=== PATIENT | male | born 1960 | race Caucasian/White ===

== ENCOUNTER 2018-03-21 17:36 | Inpatient (IN) | payer OTHER ==
[2018-03-21] MEDS ORDERED: IPRATROPIUM-ALBUTEROL 3 ML NEB INHALATION STA (18:35)
--- NOTE | 2018-03-21 18:37 | ED ---
SOB HPI - General Chief Complaint: Shortness of Breath Stated Complaint: Low O2 Sent By ME Time Seen by Provider: 03/21/18 18:34 Source: patient, family, RN notes reviewed Mode of arrival: ambulatory Limitations: no limitations - History of Present Illness Initial Comments: This is a 57-year-old male with a benign past medical history who does not smoke but has worked as a jackson for many years who states he had the onset over last 3 weeks of shortness of breath and cough was getting progressively worse. It started after having episodes of nausea vomiting about 3 and half weeks ago. He coughed up some brown phlegm today he was been very diaphoretic no chest pain or other symptoms. He has no history of asthma or lung problems. No heart disease no other symptoms or modifying factors. He does have exertional dyspnea at this time. MD Complaint: shortness of breath, cough - Related Data Home Medications Medication Instructions Recorded Confirmed Fluticasone Nasal Oscar [Flonase 1 spr EA NOSTRIL DAILY PRN 03/21/18 03/21/18 Nasal Oscar] Loratadine [Claritin] 10 mg PO DAILY PRN 03/21/18 03/21/18 Allergies Allergy/AdvReac Type Severity Reaction Status Date / Time No Known Allergies Allergy Verified 03/21/18 18:45 Review of Systems ROS Statement: Those systems with pertinent positive or pertinent negative responses have been documented in the HPI. ROS Other: All systems not noted in ROS Statement are negative. Past Medical History Past Medical History: No Reported History History of Any Multi-Drug Resistant Organisms: None Reported Past Surgical History: Hernia Repair Past Psychological History: No Psychological Hx Reported Smoking Status: Never smoker Past Alcohol Use History: Occasional Past Drug Use History: None Reported General Exam - General Exam Comments Initial Comments: This is a well little pulmonary awake alert oriented 3 male Limitations: no limitations General appearance: alert, in no apparent distress Head exam: Present: atraumatic, normocephalic, normal inspection Eye exam: Present: normal appearance, PERRL, EOMI. Absent: scleral icterus, conjunctival injection, periorbital swelling ENT exam: Present: normal exam, mucous membranes moist Neck exam: Present: normal inspection. Absent: tenderness, meningismus, lymphadenopathy Respiratory exam: Present: rhonchi (Right lower lobe rhonchi), decreased breath sounds. Absent: respiratory distress, wheezes, rales, stridor Cardiovascular Exam: Present: regular rate, normal rhythm, normal heart sounds. Absent: systolic murmur, diastolic murmur, rubs, gallop, clicks GI/Abdominal exam: Present: soft, normal bowel sounds. Absent: distended, tenderness, guarding, rebound, rigid Extremities exam: Present: normal inspection, full ROM, normal capillary refill. Absent: tenderness, pedal edema, joint swelling, calf tenderness Back exam: Present: normal inspection Neurological exam: Present: alert, oriented X3, CN II-XII intact Psychiatric exam: Present: normal affect, normal mood Skin exam: Present: warm, intact, normal color, diaphoretic. Absent: rash Course Vital Signs 03/21/18 03/21/18 03/21/18 18:07 18:39 18:46 Temperature 98.8 F 98.1 F Pulse Rate 82 77 70 Respiratory 18 18 Rate Blood Pressure 113/72 105/65 O2 Sat by Pulse 90 L 94 L Oximetry 03/21/18 03/21/18 03/21/18 19:05 19:52 21:49 Temperature 97.5 F L Pulse Rate 73 66 61 Respiratory 18 18 Rate Blood Pressure 109/65 120/74 O2 Sat by Pulse 94 L 93 L Oximetry - Reevaluation(s) Reevaluation #1: 03/21/18 21:52 Patient minimal improvement from the initial treatment. Reevaluation #2: 03/21/18 21:54 I did discuss findings with the patient has . Patient does still demonstrate evidence of hypoxemia he will be admitted I did discuss the case with city call physician. He will be admitted with consultation by pulmonary medicine. Medical Decision Making - Lab Data Result diagrams: 03/21/18 18:19 03/21/18 18:19 Lab Results 03/21/18 03/21/18 03/21/18 Range/Units 18:19 18:19 18:19 WBC 8.9 (3.8-10.6) k/uL RBC 4.29 L (4.30-5.90) m/uL Hgb 12.3 L (13.0-17.5) gm/dL Hct 37.7 L (39.0-53.0) % MCV 88.0 (80.0-100.0) fL MCH 28.7 (25.0-35.0) pg MCHC 32.6 (31.0-37.0) g/dL RDW 13.9 (11.5-15.5) % Plt Count 355 (150-450) k/uL Neutrophils % 89 % Lymphocytes % 8 % Monocytes % 2 % Eosinophils % 0 % Basophils % 0 % Neutrophils # 7.9 H (1.3-7.7) k/uL Lymphocytes # 0.7 L (1.0-4.8) k/uL Monocytes # 0.2 (0-1.0) k/uL Eosinophils # 0.0 (0-0.7) k/uL Basophils # 0.0 (0-0.2) k/uL PT (9.0-12.0) sec INR (<1.2) APTT (22.0-30.0) sec D-Dimer (<0.60) mg/L FEU Sodium 132 L (137-145) mmol/L Potassium 4.3 (3.5-5.1) mmol/L Chloride 97 L (98-107) mmol/L Carbon Dioxide 27 (22-30) mmol/L Anion Gap 8 mmol/L BUN 20 (9-20) mg/dL Creatinine 1.03 (0.66-1.25) mg/dL Est GFR (CKD-EPI)AfAm >90 (>60 ml/min/1.73 sqM) Est GFR (CKD-EPI)NonAf 82 (>60 ml/min/1.73 sqM) Glucose 124 H (74-99) mg/dL Plasma Lactic Acid Duke 1.0 (0.7-2.0) mmol/L Calcium 7.7 L (8.4-10.2) mg/dL Magnesium (1.6-2.3) mg/dL Total Bilirubin 1.6 H (0.2-1.3) mg/dL AST 135 H (17-59) U/L ALT 148 H (21-72) U/L Alkaline Phosphatase 116 (38-126) U/L NT-Pro-B Natriuret Pep pg/mL Total Protein 6.0 L (6.3-8.2) g/dL Albumin 3.1 L (3.5-5.0) g/dL 03/21/18 03/21/18 03/21/18 Range/Units 18:19 18:19 18:19 WBC (3.8-10.6) k/uL RBC (4.30-5.90) m/uL Hgb (13.0-17.5) gm/dL Hct (39.0-53.0) % MCV (80.0-100.0) fL MCH (25.0-35.0) pg MCHC (31.0-37.0) g/dL RDW (11.5-15.5) % Plt Count (150-450) k/uL Neutrophils % % Lymphocytes % % Monocytes % % Eosinophils % % Basophils % % Neutrophils # (1.3-7.7) k/uL Lymphocytes # (1.0-4.8) k/uL Monocytes # (0-1.0) k/uL Eosinophils # (0-0.7) k/uL Basophils # (0-0.2) k/uL PT 12.2 H (9.0-12.0) sec INR 1.3 H (<1.2) APTT 24.3 (22.0-30.0) sec D-Dimer 1.95 H (<0.60) mg/L FEU Sodium (137-145) mmol/L Potassium (3.5-5.1) mmol/L Chloride (98-107) mmol/L Carbon Dioxide (22-30) mmol/L Anion Gap mmol/L BUN (9-20) mg/dL Creatinine (0.66-1.25) mg/dL Est GFR (CKD-EPI)AfAm (>60 ml/min/1.73 sqM) Est GFR (CKD-EPI)NonAf (>60 ml/min/1.73 sqM) Glucose (74-99) mg/dL Plasma Lactic Acid Duke (0.7-2.0) mmol/L Calcium (8.4-10.2) mg/dL Magnesium 2.8 H (1.6-2.3) mg/dL Total Bilirubin (0.2-1.3) mg/dL AST (17-59) U/L ALT (21-72) U/L Alkaline Phosphatase (38-126) U/L NT-Pro-B Natriuret Pep pg/mL Total Protein (6.3-8.2) g/dL Albumin (3.5-5.0) g/dL 03/21/18 Range/Units 19:34 WBC (3.8-10.6) k/uL RBC (4.30-5.90) m/uL Hgb (13.0-17.5) gm/dL Hct (39.0-53.0) % MCV (80.0-100.0) fL MCH (25.0-35.0) pg MCHC (31.0-37.0) g/dL RDW (11.5-15.5) % Plt Count (150-450) k/uL Neutrophils % % Lymphocytes % % Monocytes % % Eosinophils % % Basophils % % Neutrophils # (1.3-7.7) k/uL Lymphocytes # (1.0-4.8) k/uL Monocytes # (0-1.0) k/uL Eosinophils # (0-0.7) k/uL Basophils # (0-0.2) k/uL PT (9.0-12.0) sec INR (<1.2) APTT (22.0-30.0) sec D-Dimer (<0.60) mg/L FEU Sodium (137-145) mmol/L Potassium (3.5-5.1) mmol/L Chloride (98-107) mmol/L Carbon Dioxide (22-30) mmol/L Anion Gap mmol/L BUN (9-20) mg/dL Creatinine (0.66-1.25) mg/dL Est GFR (CKD-EPI)AfAm (>60 ml/min/1.73 sqM) Est GFR (CKD-EPI)NonAf (>60 ml/min/1.73 sqM) Glucose (74-99) mg/dL Plasma Lactic Acid Duke (0.7-2.0) mmol/L Calcium (8.4-10.2) mg/dL Magnesium (1.6-2.3) mg/dL Total Bilirubin (0.2-1.3) mg/dL AST (17-59) U/L ALT (21-72) U/L Alkaline Phosphatase (38-126) U/L NT-Pro-B Natriuret Pep 168 pg/mL Total Protein (6.3-8.2) g/dL Albumin (3.5-5.0) g/dL - EKG Data -: EKG Interpreted by Oh EKG shows normal: sinus rhythm (Sinus rhythm with PACs rate was 72. Interval 134 QRS duration 92 QT since QTC 426/[address]-T wave changes) - Radiology Data Radiology results: report reviewed (Did review the initial imaging which did show evidence of increased interstitial markings. CAT scan shows no evidence of PE there is evidence however of pulmonary infiltrates extensive some mediastinal adenopathy question sarcoidosis.), image reviewed Critical Care Time Critical Care Time: Yes Critical Care Time: 31 minutes of critical care time which includes history physical labs x-rays several reevaluation of the patient. Discussed with the patient has discussed with the beta physician admission orders and documentation of the above. Disposition Clinical Impression: Interstitial pneumonia, Hypoxemia, Failure of outpatient treatment Disposition: ADMITTED IP TO THIS [facility] Condition: Stable Referrals: None,Stated [Primary Care Provider] - 1-2 days
[2018-03-21 18:42] LABS: INR 1.3 (<1.2); Partial Thromboplastin Time 24.3 sec (22.0-30.0); Prothrombin Time 12.2 sec (9.0-12.0)
[2018-03-21 18:47] LABS: ALT 148 U/L (21-72); AST 135 U/L (17-59); Albumin 3.1 g/dL (3.5-5.0); Alkaline Phosphatase 116 U/L (38-126); Anion Gap 8 mmol/L; Blood Urea Nitrogen 20 mg/dL (9-20); Calcium 7.7 mg/dL (8.4-10.2); Carbon Dioxide 27 mmol/L (22-30); Chloride 97 mmol/L (98-107); Glucose 124 mg/dL (74-99); Potassium 4.3 mmol/L (3.5-5.1); Sodium 132 mmol/L (137-145); Total Bilirubin 1.6 mg/dL (0.2-1.3)
[2018-03-21 18:51] LABS: Basophils % (A) 0 %; Eosinophils % (A) 0 %; HCT 37.7 % (39.0-53.0); HGB 12.3 gm/dL (13.0-17.5); Lymphocytes # (A) 0.7 k/uL (1.0-4.8); Lymphocytes % (A) 8 %; MCH 28.7 pg (25.0-35.0); MCHC 32.6 g/dL (31.0-37.0); Mean Platelet Volume 6.7; Monocytes # (A) 0.2 k/uL (0-1.0); Monocytes % (A) 2 %; Neutrophils # (A) 7.9 k/uL (1.3-7.7); Neutrophils % (A) 89 %; Platelet Count 355 k/uL (150-450); RBC 4.29 m/uL (4.30-5.90); RDW 13.9 % (11.5-15.5); WBC 8.9 k/uL (3.8-10.6)
--- NOTE | 2018-03-21 21:23 | CT ---
EXAMINATION TYPE: CT angio chest DATE OF EXAM: 03/21/2018 8:26 PM COMPARISON: None HISTORY: chest pain/cough/sob x [address] DLP: 434.9 mGycm Automated exposure control for dose reduction was used. CONTRAST: CTA scan of the thorax is performed with IV Contrast, patient injected with 100 mL of Isovue 370, pul monary embolism protocol. There are 3-D post processed images.. FINDINGS: There is extensive patchy reticular nodular bilateral pulmonary infiltrate. This is slightly worse on the right side. There is some elevation of the right diaphragm and atelectasis and consolidation at the right lung base. There is minimal pleural thickening at the lung bases. There is no pericardial e ffusion. There are multiple enlarged mediastinal and bronchial lymph nodes that measure up to 2 cm. I see no filling defects in the pulmonary arteries. There is no evidence of aortic aneurysm or dissect ion. The bony thorax is intact. IMPRESSION: NO EVIDENCE OF PULMONARY EMBOLISM. EXTENSIVE PULMONARY INFILTRATES WITH MEDIASTINAL AND BRONCHIAL ADENOPATHY. THIS COULD RELATE TO SARCO IDOSIS.
[2018-03-21] MEDS ORDERED: cefTRIAXone IN SWFI 1,000 MG/10 ML SYRINGE IVP STA (21:51)
[2018-03-21] MEDS ORDERED: methylPREDNISolone SOD SUCCI 125 MG/2 ML VIAL IV STA (21:51)
[2018-03-21] MEDS ORDERED: PNEUMONIA PROTOCOL UTILIZED 1 EACH MISC PO PRN (21:56)
[2018-03-21] MEDS ORDERED: AZITHROMYCIN 500 MG in DEXTROSE 5% IN WATER 250 ML IVPB STA ×2 (21:56)
[2018-03-21] MEDS ORDERED: FLUTICASONE 50MCG/SPRAY NASAL 16GM EA NOSTRIL PRN (21:58)
[2018-03-21] MEDS ORDERED: LORATADINE 10 MG TAB PO PRN (21:58)
[2018-03-21] MEDS ORDERED: SODIUM CHLORIDE 0.9% 1,000 ML IV SCH (22:00)
[2018-03-22] MEDS ORDERED: methylPREDNISolone SOD SUCCI 125 MG/2 ML VIAL IV SCH
[2018-03-22] MEDS ORDERED: IPRATROPIUM-ALBUTEROL 3 ML NEB INHALATION SCH
[2018-03-22] MEDS ORDERED: NALOXONE 0.4 MG/ML 1 ML VIAL IV PRN (00:55)
--- NOTE | 2018-03-22 01:08 | P.HPIM ---
History of Present Illness H&P Date: 03/21/18 Chief Complaint: Cough and shortness of breath 57-year-old male with no significant past medical history presented to the hospital due to fevers and chills at home along with prolonged coughing productive of brownish sputum along with shortness of breath with coughing. Patient reports that he wasn't status of health up to 3 weeks ago when he started having viral syndrome like symptoms with generalized malaise and coughing his was diagnosed with cold/flu like symptoms before him. He thought that he caught the flu from her however his symptoms kept on worsening and has been prolonged his has been feeling better already. Over the past few days he has noticed fevers ranging between 101-103 Fahrenheit along with shortness of breath in productive cough brownish sputum sometimes whitish sputum increasing in amount. He denies any history of smoking. 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 Patient denies any chest pain, denies any abdominal pain, denies any nausea or vomiting, denies any bowel changes or urinary habit changes. In the ED CT angiogram the chest was performed showed no evidence of acute PE. However did show diffuse infiltrations and lymphadenopathy. Patient is admitted for treatment of pneumonia. Review of Systems Pertinent positives as noted in HPI. All other systems were reviewed and are negative Past Medical History Past Medical History: No Reported History History of Any Multi-Drug Resistant Organisms: None Reported Past Surgical History: Hernia Repair Past Psychological History: No Psychological Hx Reported Smoking Status: Never smoker Past Alcohol Use History: Occasional Past Drug Use History: None Reported - Past Family History Father Family Medical History: Cancer Additional Family Medical History / Comment(s): colon and prostate Medications and Allergies Home Medications Medication Instructions Recorded Confirmed Type Fluticasone Nasal Sawyer [Flonase 1 spr EA NOSTRIL DAILY PRN 03/21/18 03/21/18 History Nasal Sawyer] Loratadine [Claritin] 10 mg PO DAILY PRN 03/21/18 03/21/18 History Allergies Allergy/AdvReac Type Severity Reaction Status Date / Time No Known Allergies Allergy Verified 03/21/18 18:45 Physical Exam Vitals: Vital Signs Temp Pulse Resp BP Pulse Ox 03/21/18 21:49 97.5 F L 61 18 120/74 93 L 03/21/18 19:52 66 18 109/65 94 L 03/21/18 19:05 73 03/21/18 18:46 70 03/21/18 18:39 98.1 F 77 18 105/65 94 L 03/21/18 18:07 98.8 F 82 18 113/72 90 L Intake and Output 03/21/18 03/21/18 03/21/18 06:59 14:59 22:59 Other: Weight 104.326 kg Constitutional: No acute distress, conversant, pleasant Eyes: Anicteric sclerae, moist conjunctiva, no lid-lag Pupils equal round reactive to light ENMT: NC/AT Oropharynx clear, no erythema, or exudates Neck: Supple, FROM, no masses, or JVD No carotid bruits No thyromegaly Lungs: Decreased breath sounds over right lung base, no wheezes or rhonchi Normal respiratory effort, no accessory muscle use Cardiovascular: Heart regular in rate and rhythm, No murmurs, gallops, or rubs No peripheral edema Abdominal: Soft Nontender, no guarding, rebound or rigidity Abdomen moving with respiration Normoactive bowel sounds No hepatomegaly, No splenomegaly No palpable mass No abdominal wall hernia noted Skin: Normal temperature, tone, texture, turgor No induration No subcutaneous nodules No rash, lesions No ulcers Extremities: No digital cyanosis No clubbing Pedal pulses intact and symmetrical Radial pulses intact and symmetrical No calf tenderness Psychiatric: Alert and oriented to person, place and time Appropriate affect fair judgment Neuro Muscles Strength 5/5 in all 4 extremities Sensation to light touch grossly present throughout Cranial nerves II-XII grossly intact No focal sensory deficits Lymphatics: no palpable cervical or supraclavicular , or inguinal lymph nodes Results CBC & Chem 7: 03/21/18 18:19 03/21/18 18:19 Labs: Abnormal Lab Results - Last 24 Hours (Table) 03/21/18 03/21/18 03/21/18 Range/Units 18:19 18:19 18:19 RBC 4.29 L (4.30-5.90) m/uL Hgb 12.3 L (13.0-17.5) gm/dL Hct 37.7 L (39.0-53.0) % Neutrophils # 7.9 H (1.3-7.7) k/uL Lymphocytes # 0.7 L (1.0-4.8) k/uL PT 12.2 H (9.0-12.0) sec INR 1.3 H (<1.2) D-Dimer (<0.60) mg/L FEU Sodium 132 L (137-145) mmol/L Chloride 97 L (98-107) mmol/L Glucose 124 H (74-99) mg/dL Calcium 7.7 L (8.4-10.2) mg/dL Magnesium (1.6-2.3) mg/dL Total Bilirubin 1.6 H (0.2-1.3) mg/dL AST 135 H (17-59) U/L ALT 148 H (21-72) U/L Total Protein 6.0 L (6.3-8.2) g/dL Albumin 3.1 L (3.5-5.0) g/dL 03/21/18 03/21/18 Range/Units 18:19 18:19 RBC (4.30-5.90) m/uL Hgb (13.0-17.5) gm/dL Hct (39.0-53.0) % Neutrophils # (1.3-7.7) k/uL Lymphocytes # (1.0-4.8) k/uL PT (9.0-12.0) sec INR (<1.2) D-Dimer 1.95 H (<0.60) mg/L FEU Sodium (137-145) mmol/L Chloride (98-107) mmol/L Glucose (74-99) mg/dL Calcium (8.4-10.2) mg/dL Magnesium 2.8 H (1.6-2.3) mg/dL Total Bilirubin (0.2-1.3) mg/dL AST (17-59) U/L ALT (21-72) U/L Total Protein (6.3-8.2) g/dL Albumin (3.5-5.0) g/dL Assessment and Plan Assessment: 57-year-old male with no significant past medical history admitted as inpatient with anticipated length of stay of more than 2 days due to fevers coughing shortness of breath, he was diagnosed with congenital acquired pneumonia and started on IV antibiotics. Patient was hypoxemic initially upon admission and was started on oxygen through nasal cannula which helped improve the hypoxemia. Plan: Continue acquired pneumonia , suspected underlying legionella penumonia due to hyponatremia, elevated liver enzymes, and diffuse pulmonary infilterates Acute hypoxic respiratory failure secondary to continue current pneumonia Rocephin and Zithromax Tylenol for fevers Oxygen through nasal cannula Pain control Follow-up with pulmonary due to diffuse lymphadenopathy and pulmonary infiltrates Patient has no PCP Check Legionella antigen in the urine IV fluid hydration with normal saline Hyponatremia, this could be related to possible suspected underlying legionella pneumonia Follow-up sodium levels Currently asymptomatic Mild anemia Family history of colon cancer Patient denies GI bleeds Follow-up hemoglobin DVT prophylaxis on heparin subcu 3 times a day Surrogate decision-maker: Patient Toshia CODE STATUS: Full code Discussed with: Patient, ER, RN Anticipated discharge: >[address]: Home A total of 60 minutes was spent on the care of this complex patient more than 50 % of the time was spent in counseling and care coordination.
[2018-03-22 02:08] LABS: Appearance,Urine Clear (Clear); Bilirubin,Urine Negative (Negative); Blood,Urine Trace (Negative); Color,Urine Yellow; Glucose,Urine (UA) 3+ (Negative); Ketones,Urine Negative (Negative); Leukocyte Esterase,Urine Negative (Negative); Nitrite,Urine Negative (Negative); Protein,Urine Trace (Negative); RBC,Urine <1 /hpf (0-5); Specific Gravity,Urine 1.015 (1.001-1.035); WBC,Urine 1 /hpf (0-5)
[2018-03-22] MEDS: IPRATROPIUM-ALBUTEROL 3 ML NEB INHALATION SCH ×3 (07:06→15:31)
[2018-03-22] MEDS ORDERED: HEPARIN SODIUM,PORCINE 5,000 UNIT/ML 1 ML VIAL SQ SCH (08:00)
--- NOTE | 2018-03-22 08:09 | XR ---
EXAMINATION TYPE: XR chest 2V DATE OF EXAM: 03/22/2018 COMPARISON: None INDICATION: Cough TECHNIQUE: Frontal and lateral views of the chest are obtained. FINDINGS: The heart size is normal. The pulmonary vasculature is normal. Focal consolidation is not identified. Mild increased lung markings are not entirely excluded at the lung bases. Findings are nonspecific. Developing pneumonia could be considered. Atelectasis is within the differential. IMPRESSION: 1. Subtle bibasilar infiltrates more likely related to subsegmental atelectasis. Developing pneumonia is within the differential. Follow-up exams can be performed as clinically indicated.
[2018-03-22] MEDS: AZITHROMYCIN 500 MG TAB PO SCH (08:27)
[2018-03-22] MEDS: cefTRIAXone IN SWFI 1,000 MG/10 ML SYRINGE IVP SCH (08:27)
--- NOTE | 2018-03-22 08:56 | US ---
EXAMINATION TYPE: US abdomen limited DATE OF EXAM: 03/22/2018 COMPARISON: NONE CLINICAL HISTORY: elevated liver enzymes. abnormal labs EXAM MEASUREMENTS: Liver Length: 16.4 cm Gallbladder Wall: 0.2 cm CHD: 0.4 cm Right Kidney: 11.9x 5.5 x 7.0 cm Limited exam due to overlying bowel gas Pancreas: Suboptimally visualized, head and tail not well visualized due to overlying bowel gas Liver: Two cystic appearing lesions seen. 1- Right adjacent to GB = 1.5 x 1.1 x 1.3 cm. 2- Left lo be = 1.6 x 1.4 x 1.0 cm Gallbladder: wnl Evidence for sonographic Cuello's sign: neg CBD: Obscured by overlying bowel gas CHD: wnl Right Kidney: Two cystic appearing lesions. 1-Mid/medial = 2.4 x 2.7 x 2.0 cm. 2- upper cortical = 1.2 x 0.9 x 1.0 cm IMPRESSION: 1. No sonographic evidence of cholelithiasis or acute cholecystitis. No sonographic sequela of hepato cellular disease. 2. Simple appearing hepatic and right renal cysts.
--- NOTE | 2018-03-22 11:44 | P.PN ---
Subjective Progress Note Date: 03/22/18 Principal diagnosis: Community-acquired pneumonia Patient reports feeling slightly better today. He is still having a lot of cough. Objective - Vital Signs Vital signs: Vital Signs Temp 96.9 F L 03/22/18 07:00 Pulse 88 03/22/18 11:19 Resp 16 03/22/18 11:19 BP 112/88 03/22/18 07:00 Pulse Ox 93 L 03/22/18 07:07 Intake & Output 03/21/18 03/22/18 03/22/18 18:59 06:59 18:59 Output Total 1100 Balance -1100 Weight 104.326 kg Output: Urine 1100 Other: Voiding Method Toilet - Exam General: The patient is awake and alert, in no distress Eye: there is normal conjunctiva bilaterally. Neck: The neck is supple, there is no JVD. Cardiovascular: Normal S1-S2, no S3-S4, no murmurs. Respiratory: Lungs with mild wheezing and rhonchi all over the chest Gastrointestinal: Abdomen is soft, nontender Musculoskeletal: There is no pedal edema. Neurological:. Speech is normal. Skin: Skin is warm and dry - Labs CBC & Chem 7: 03/21/18 18:19 03/21/18 18:19 Labs: Abnormal Lab Results - Last 24 Hours (Table) 03/21/18 03/21/18 03/21/18 Range/Units 18:19 18:19 18:19 RBC 4.29 L (4.30-5.90) m/uL Hgb 12.3 L (13.0-17.5) gm/dL Hct 37.7 L (39.0-53.0) % Neutrophils # 7.9 H (1.3-7.7) k/uL Lymphocytes # 0.7 L (1.0-4.8) k/uL PT 12.2 H (9.0-12.0) sec INR 1.3 H (<1.2) D-Dimer (<0.60) mg/L FEU Sodium 132 L (137-145) mmol/L Chloride 97 L (98-107) mmol/L Glucose 124 H (74-99) mg/dL Calcium 7.7 L (8.4-10.2) mg/dL Magnesium (1.6-2.3) mg/dL Total Bilirubin 1.6 H (0.2-1.3) mg/dL AST 135 H (17-59) U/L ALT 148 H (21-72) U/L Total Protein 6.0 L (6.3-8.2) g/dL Albumin 3.1 L (3.5-5.0) g/dL Urine Protein (Negative) Urine Glucose (UA) (Negative) Urine Blood (Negative) 03/21/18 03/21/18 03/22/18 Range/Units 18:19 18:19 01:40 RBC (4.30-5.90) m/uL Hgb (13.0-17.5) gm/dL Hct (39.0-53.0) % Neutrophils # (1.3-7.7) k/uL Lymphocytes # (1.0-4.8) k/uL PT (9.0-12.0) sec INR (<1.2) D-Dimer 1.95 H (<0.60) mg/L FEU Sodium (137-145) mmol/L Chloride (98-107) mmol/L Glucose (74-99) mg/dL Calcium (8.4-10.2) mg/dL Magnesium 2.8 H (1.6-2.3) mg/dL Total Bilirubin (0.2-1.3) mg/dL AST (17-59) U/L ALT (21-72) U/L Total Protein (6.3-8.2) g/dL Albumin (3.5-5.0) g/dL Urine Protein Trace H (Negative) Urine Glucose (UA) 3+ H (Negative) Urine Blood Trace H (Negative) Microbiology - Last 24 Hours (Table) 03/22/18 01:40 Urine Culture - Preliminary Urine,Voided Assessment and Plan Assessment: 1. Community-acquired pneumonia, started on IV ceftriaxone and oral azithromycin. Sputum and blood culture pending. Legionella antigen pending. Continue supportive care. Mucinex twice daily. 2. Reactive airway disease, patient is not known to have history of COPD. he was given one-time dose of Solu-Medrol 125 mg IV in the emergency room. We will continue bronchodilator. Pulmonology consulted for further evaluation. 3. Bibasilar atelectasis noted on chest x-ray, incentive spirometer ordered at bedside to be used once an hour while awake 4. Transaminitis, exact etiology unclear. I would open her acute hepatitis panel. Ultrasound of the abdomen showed no acute findings. 5. Hyponatremia, probably related to dehydration. patient received IV fluid overnight. Awaiting repeat lab work. 6. DVT prophylaxis with subcu heparin 7. Dyspnea, probably related to underlying pneumonia. Computed tomography scan of the chest showed no evidence of PE. Noted mediastinal and bronchial adenopathy probably related to underlying infection. Pulmonology consulted. In the differential diagnosis still inflammatory disease or underlying sarcoidosis at this time
--- NOTE | 2018-03-22 13:30 | P.CNPUL ---
History of Present Illness Consult date: 03/22/18 Reason for consult: dyspnea, cough, hypoxemia, pneumonia, abnormal CXR/CT Chief complaint: Shortness of breath, pneumonia History of present illness: Pulmonary consultation dated 03/22/2018 This is a 57-year-old male with no significant past medical history other than environmental ALLERGIES for which he uses Claritin and Flonase nasal spray apparently has not been feeling well for about 2 or 3 weeks. The patient describes initially some GI complaints including some nausea and vomiting and subsequent to that some respiratory complaints including shortness of breath chest congestion cough and phlegm production. The patient states that the prior to this he was doing completely well and really had no major issues other than his ALLERGIES. He denies any cardiac disease or pulmonary disease prior. He is a lifelong nonsmoker. The patient states that he came into the emergency room because he was really feeling very ill. He thought was some pleural viral infection. The phlegm is coughing up is apparently brown in color and very sticky. His chest x-ray showed a subtle interstitial pattern and/or atelectasis and a computed tomography scan was very impressive. It could be consistent with an interstitial pneumonia. There is also some adenopathy in the radiologist raises specter of possible sarcoidosis. Again 2-3 weeks ago, he was completely normal. Lifelong nonsmoker. 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 The patient again is a lifelong nonsmoker. The patient does drink only socially. No history of illicit drug use. Review of Systems A 12 point review of systems is positive for initially some GI complaints including some abdominal discomfort and nausea and vomiting. Subsequent to that , the patient developed some respiratory issues including chest congestion coughing shortness of breath wheezing and phlegm production. The symptoms have been present and progressive over the last 2-3 weeks. Past Medical History Past Medical History: No Reported History History of Any Multi-Drug Resistant Organisms: None Reported Past Surgical History: Hernia Repair Past Anesthesia/Blood Transfusion Reactions: No Reported Reaction Past Psychological History: No Psychological Hx Reported Smoking Status: Never smoker Past Alcohol Use History: Occasional Past Drug Use History: None Reported - Past Family History Father Family Medical History: Cancer Additional Family Medical History / Comment(s): colon and prostate Medications and Allergies Home Medications Medication Instructions Recorded Confirmed Type Fluticasone Nasal Holt [Flonase 1 spr EA NOSTRIL DAILY PRN 03/21/18 03/21/18 History Nasal Holt] Loratadine [Claritin] 10 mg PO DAILY PRN 03/21/18 03/21/18 History Allergies Allergy/AdvReac Type Severity Reaction Status Date / Time No Known Allergies Allergy Verified 03/21/18 18:45 Physical Exam Osteopathic Statement: *. No significant issues noted on an osteopathic structural exam other than those noted in the History and Physical/Consult. Vitals: Vital Signs Temp Pulse Pulse Resp BP BP Pulse Ox 03/22/18 11:54 87 L 03/22/18 11:19 88 16 03/22/18 11:05 85 16 03/22/18 07:17 74 16 03/22/18 07:07 70 16 93 L 03/22/18 07:00 96.9 F L 75 22 112/88 94 L 03/21/18 23:44 98.7 F 72 24 107/60 94 L 03/21/18 21:49 97.5 F L 61 18 120/74 93 L 03/21/18 19:52 66 18 109/65 94 L 03/21/18 19:05 73 03/21/18 18:46 70 03/21/18 18:39 98.1 F 77 18 105/65 94 L 03/21/18 18:07 98.8 F 82 18 113/72 90 L Intake and Output 03/21/18 03/22/18 03/22/18 22:59 06:59 14:59 Output Total 1100 Balance -1100 Output: Urine 1100 Other: Voiding Method Toilet Weight 104.326 kg No acute distress, oriented 3. Nasal O2 in place. No obvious respiratory distress. HEENT examination is grossly unremarkable. Mucous membranes are moist. No oral lesions. Neck supple. Full range of motion. No adenopathy thyromegaly or neck vein distention. Cardiovascular examination reveals regular rhythm rate. S1-S2 normal. No S3 or S4. No discernible murmur noted. Lungs reveal crackles throughout both lung maki. He sounds like someone with interstitial lung disease. No wheezes. No rhonchi. Breath sounds equal bilaterally. Abdomen soft bowel sounds are heard. No masses or tenderness. Extremities are intact. No cyanosis clubbing or edema. Skin is without rash or lesion. Neurologic examination is brief but nonfocal. Results - Laboratory Findings CBC and BMP: 03/21/18 18:19 03/21/18 18:19 PT/INR, D-dimer PT 12.2 sec (9.0-12.0) H 03/21/18 18:19 INR 1.3 (<1.2) H 03/21/18 18:19 D-Dimer 1.95 mg/L FEU (<0.60) H 03/21/18 18:19 Abnormal lab findings: Abnormal Labs 03/21/18 03/21/18 03/21/18 18:19 18:19 18:19 RBC 4.29 L Hgb 12.3 L Hct 37.7 L Neutrophils # 7.9 H Lymphocytes # 0.7 L PT 12.2 H INR 1.3 H D-Dimer Sodium 132 L Chloride 97 L Glucose 124 H Calcium 7.7 L Magnesium Total Bilirubin 1.6 H AST 135 H ALT 148 H Total Protein 6.0 L Albumin 3.1 L Urine Protein Urine Glucose (UA) Urine Blood 03/21/18 03/21/18 03/22/18 18:19 18:19 01:40 RBC Hgb Hct Neutrophils # Lymphocytes # PT INR D-Dimer 1.95 H Sodium Chloride Glucose Calcium Magnesium 2.8 H Total Bilirubin AST ALT Total Protein Albumin Urine Protein Trace H Urine Glucose (UA) 3+ H Urine Blood Trace H - Diagnostic Findings Chest x-ray: report reviewed, image reviewed CT scan - chest: report reviewed, image reviewed (Chest x-ray, labs and medications are all reviewed.) Assessment and Plan Assessment: Assessment Interstitial changes on chest x-ray and CAT scan, possibly consistent with interstitial pneumonia or atypical organisms. History of multiple environmental ALLERGIES No prior history of pulmonary disease. Lifelong nonsmoker Hypoxemic respiratory failure. Plan: Plan dated 03/22/2018 The patient's white count was 8.9. Hemoglobin 12.3 hematocrit 37.7 and platelet count normal. PT/INR were 12.2 and 1.3. D-dimer was 1.95. Sodium 132 potassium 4.3 chloride is 97 CO2 27. BUN and creatinine were 20 and 1.03. N-terminal proBNP was normal. Calcium 7.7 magnesium 2.8 bilirubin 1.6 AST and ALTs were 135 and 148 respectively. Urine appears to be relatively normal. The patient's chest x-ray is not too impressive but his CAT scan is impressive. He is currently on Zithromax and Rocephin. He is also getting breathing treatments. He got one dose of steroids. He is also on Mucinex Flonase nasal spray and a basic IV. I will get a Legionella urinary antigen. If not really done, he should have blood urine and sputum cultures. He may benefit from bronchoscopy did not show improvement. I will also order an angiotensin- converting enzyme level. Time with Patient: Greater than 30
[2018-03-22] MEDS: guaiFENesin 600 MG TABLET.ER PO SCH ×2 (13:40→21:00)
[2018-03-22 16:57] LABS: Hepatitis A Antibody IgM Non-Reactive (Non-Reactive); Hepatitis B Core IgM Non-Reactive (Non-Reactive)
[2018-03-22] MEDS: HEPARIN SODIUM,PORCINE 5,000 UNIT/ML 1 ML VIAL SQ SCH (20:59)
[2018-03-23 08:20] LABS: Basophils % (A) 0 %; Eosinophils % (A) 0 %; HCT 36.8 % (39.0-53.0); HGB 11.5 gm/dL (13.0-17.5); Lymphocytes # (A) 0.9 k/uL (1.0-4.8); Lymphocytes % (A) 10 %; MCH 28.3 pg (25.0-35.0); MCHC 31.3 g/dL (31.0-37.0); MCV 90.4 fL (80.0-100.0); Monocytes # (A) 0.2 k/uL (0-1.0); Monocytes % (A) 2 %; Neutrophils # (A) 7.3 k/uL (1.3-7.7); Neutrophils % (A) 86 %; Platelet Count 364 k/uL (150-450); RBC 4.07 m/uL (4.30-5.90); RDW 13.4 % (11.5-15.5); WBC 8.5 k/uL (3.8-10.6)
[2018-03-23 08:31] LABS: ALT 127 U/L (21-72); AST 73 U/L (17-59); Albumin 2.6 g/dL (3.5-5.0); Alkaline Phosphatase 86 U/L (38-126); Anion Gap 8 mmol/L; Blood Urea Nitrogen 18 mg/dL (9-20); Calcium 7.8 mg/dL (8.4-10.2); Carbon Dioxide 25 mmol/L (22-30); Chloride 104 mmol/L (98-107); Glucose 99 mg/dL (74-99); Potassium 4.4 mmol/L (3.5-5.1); Sodium 137 mmol/L (137-145); Total Bilirubin 0.7 mg/dL (0.2-1.3); Total Protein 5.4 g/dL (6.3-8.2)
[2018-03-23] MEDS: cefTRIAXone IN SWFI 1,000 MG/10 ML SYRINGE IVP SCH (08:41)
[2018-03-23] MEDS: AZITHROMYCIN 500 MG TAB PO SCH (08:41)
[2018-03-23] MEDS: guaiFENesin 600 MG TABLET.ER PO SCH ×2 (08:41→20:12)
[2018-03-23] MEDS: HEPARIN SODIUM,PORCINE 5,000 UNIT/ML 1 ML VIAL SQ SCH ×2 (08:42→20:12)
[2018-03-23] MEDS: IPRATROPIUM-ALBUTEROL 3 ML NEB INHALATION PRN ×2 (11:46→19:41)
--- NOTE | 2018-03-23 11:53 | P.PN ---
Subjective Progress Note Date: 03/23/18 Principal diagnosis: Community-acquired pneumonia Patient is doing well today. He said that his shortness of breath is improving but he is not back to his normal baseline yet. He is still having dyspnea with ambulation. Objective - Vital Signs Vital signs: Vital Signs Temp 97.4 F L 03/23/18 06:46 Pulse 98 03/23/18 11:48 Resp 18 03/23/18 06:46 BP 120/76 03/23/18 06:46 Pulse Ox 93 L 03/23/18 08:13 Intake & Output 03/22/18 03/23/18 03/23/18 18:59 06:59 18:59 Intake Total 450 Balance 450 Intake: Oral 450 Other: Voiding Method Toilet # Voids 1 1 - Exam General: The patient is awake and alert, in no distress Eye: there is normal conjunctiva bilaterally. Neck: The neck is supple, there is no JVD. Cardiovascular: Normal S1-S2, no S3-S4, no murmurs. Respiratory: Lungs are clear to auscultation bilaterally Gastrointestinal: Abdomen is soft, nontender Musculoskeletal: There is no pedal edema. Neurological:. Speech is normal. Skin: Skin is warm and dry - Labs CBC & Chem 7: 03/23/18 07:44 03/23/18 07:44 Labs: Abnormal Lab Results - Last 24 Hours (Table) 03/23/18 03/23/18 Range/Units 07:44 07:44 RBC 4.07 L (4.30-5.90) m/uL Hgb 11.5 L (13.0-17.5) gm/dL Hct 36.8 L (39.0-53.0) % Lymphocytes # 0.9 L (1.0-4.8) k/uL Calcium 7.8 L (8.4-10.2) mg/dL AST 73 H (17-59) U/L ALT 127 H (21-72) U/L Total Protein 5.4 L (6.3-8.2) g/dL Albumin 2.6 L (3.5-5.0) g/dL Microbiology - Last 24 Hours (Table) 03/22/18 09:00 Gram Stain - Preliminary Sputum 03/21/18 18:19 Blood Culture - Preliminary Blood No Growth after 24 hours 03/22/18 01:40 Urine Culture - Preliminary Urine,Voided Assessment and Plan Assessment: 1. Community-acquired pneumonia, started on IV ceftriaxone and oral azithromycin. Sputum and blood culture pending. Legionella antigen is a send out lab and won't be back until Sunday or Sunday. Continue supportive care. Mucinex twice daily. 2. Reactive airway disease, patient is not known to have history of COPD. he was given one-time dose of Solu-Medrol 125 mg IV in the emergency room. We will continue bronchodilator. Pulmonology consulted for further evaluation. 3. Bibasilar atelectasis noted on chest x-ray, incentive spirometer ordered at bedside to be used once an hour while awake 4. Transaminitis, trending down. exact etiology unclear. Acute hepatitis panel pending. Ultrasound of the abdomen showed no acute findings. 5. Hyponatremia, resolved with IV fluid hydration. probably related to dehydration 6. DVT prophylaxis with subcu heparin 7. Dyspnea, probably related to underlying pneumonia. Computed tomography scan of the chest showed no evidence of PE. Noted mediastinal and bronchial adenopathy probably related to underlying infection. Pulmonology consulted. Considering bronchoscopy on Sunday awaiting final recommendations,
--- NOTE | 2018-03-23 12:15 | P.PN ---
Subjective Progress Note Date: 03/23/18 Principal diagnosis: Pneumonia Progress note dated 03/23/2018 57-year-old male who was admitted with a diagnosis of a respiratory illness that has been going on for a couple weeks. His chest x-ray and CAT scan suggesting interstitial pattern consistent with either viral or atypical pneumonia. The patient's complaints primarily included chest congestion cough and shortness of breath. He is feeling a bit better today. Somewhat of a poor historian. This process per my consultation started maybe 2-3 weeks ago. He initially had some GI complaints. He is a pretty healthy man. Has a history of multiple environmental ALLERGIES. He has no prior history of any lung disease. He is a lifelong nonsmoker. White count is 8.5 hemoglobin 11.5 hematocrit 36.8 and platelet count is normal. Electrolytes look pretty normal. Liver function tests were a little abnormal but seemed to be improving. Urine was negative. Blood urine and sputum cultures are thus far negative. A Legionella urinary antigen is pending. He is currently on Zithromax and Rocephin and breathing treatments. Objective - Vital Signs Vital signs: Vital Signs Temp 97.4 F L 03/23/18 06:46 Pulse 94 03/23/18 12:00 Resp 18 03/23/18 06:46 BP 120/76 03/23/18 06:46 Pulse Ox 93 L 03/23/18 08:13 Intake & Output 03/22/18 03/23/18 03/23/18 18:59 06:59 18:59 Intake Total 450 Balance 450 Intake: Oral 450 Other: Voiding Method Toilet # Voids 1 1 - Exam No acute distress, oriented 3. Nasal O2 in place. No respiratory distress. HEENT examination is grossly unremarkable. Mucous membranes are moist. No oral lesions. Neck supple. Full range of motion. No adenopathy thyromegaly or neck vein distention. Cardiovascular examination reveals regular rhythm rate. S1-S2 normal. No S3 or S4. No discernible murmur noted. Lungs reveal bilateral crackles. No wheezes. No rhonchi. Breath sounds equal bilaterally. Abdomen soft bowel sounds are heard. No masses or tenderness. Extremities are intact. No cyanosis clubbing or edema. Skin is without rash or lesion. Neurologic examination is brief but nonfocal. - Labs CBC & Chem 7: 03/23/18 07:44 03/23/18 07:44 Labs: Abnormal Lab Results - Last 24 Hours (Table) 03/23/18 03/23/18 Range/Units 07:44 07:44 RBC 4.07 L (4.30-5.90) m/uL Hgb 11.5 L (13.0-17.5) gm/dL Hct 36.8 L (39.0-53.0) % Lymphocytes # 0.9 L (1.0-4.8) k/uL Calcium 7.8 L (8.4-10.2) mg/dL AST 73 H (17-59) U/L ALT 127 H (21-72) U/L Total Protein 5.4 L (6.3-8.2) g/dL Albumin 2.6 L (3.5-5.0) g/dL Microbiology - Last 24 Hours (Table) 03/22/18 09:00 Gram Stain - Preliminary Sputum 03/21/18 18:19 Blood Culture - Preliminary Blood No Growth after 24 hours 03/22/18 01:40 Urine Culture - Preliminary Urine,Voided Assessment and Plan Assessment: Assessment Interstitial changes on chest x-ray and CAT scan, possibly consistent with interstitial pneumonia or an atypical infection. History of multiple environmental ALLERGIES No prior history of pulmonary disease. Lifelong nonsmoker Hypoxemic respiratory failure. Plan: Plan dated 03/22/2018 The patient's white count was 8.9. Hemoglobin 12.3 hematocrit 37.7 and platelet count normal. PT/INR were 12.2 and 1.3. D-dimer was 1.95. Sodium 132 potassium 4.3 chloride is 97 CO2 27. BUN and creatinine were 20 and 1.03. N-terminal proBNP was normal. Calcium 7.7 magnesium 2.8 bilirubin 1.6 AST and ALTs were 135 and 148 respectively. Urine appears to be relatively normal. The patient's chest x-ray is not too impressive but his CAT scan is impressive. He is currently on Zithromax and Rocephin. He is also getting breathing treatments. He got one dose of steroids. He is also on Mucinex Flonase nasal spray and a basic IV. I will get a Legionella urinary antigen. If not really done, he should have blood urine and sputum cultures. He may benefit from bronchoscopy did not show improvement. I will also order an angiotensin- converting enzyme level. Plan dated 03/23/2018. The patient will have a repeat chest x-ray in the morning. He continues on Rocephin and Zithromax and breathing treatments. Cultures are pending or negative. Legionella urinary antigen is currently pending. An MARCELINO level was ordered but is not back yet. Additional recommendations and suggestions are forthcoming. An infectious disease consultation would be appropriate. Time with Patient: Less than 30
[2018-03-24] MEDS: cefTRIAXone IN SWFI 1,000 MG/10 ML SYRINGE IVP SCH (07:37)
[2018-03-24] MEDS: AZITHROMYCIN 500 MG TAB PO SCH (07:38)
[2018-03-24] MEDS: HEPARIN SODIUM,PORCINE 5,000 UNIT/ML 1 ML VIAL SQ SCH ×2 (07:38→20:31)
[2018-03-24] MEDS: guaiFENesin 600 MG TABLET.ER PO SCH ×2 (07:38→20:31)
[2018-03-24] MEDS: IPRATROPIUM-ALBUTEROL 3 ML NEB INHALATION PRN ×4 (09:05→20:09)
--- NOTE | 2018-03-24 10:19 | XR ---
EXAMINATION TYPE: XR chest 2V DATE OF EXAM: 03/24/2018 HISTORY: Pneumonia. REFERENCE: Previous study of 03/22/2018. FINDINGS: Heart size upper limits of normal. There is some scarring or atelectasis in the right midlu ng. The lungs are otherwise clear. There is a small right pleural effusion. The left lung appears mary ar. IMPRESSION: 1. BORDERLINE CARDIOMEGALY. 2. SCARRING VERSUS ATELECTASIS, RIGHT MIDLUNG. 3. SMALL, DEVELOPING RIGHT-SIDED PLEURAL EFFUSION.
[2018-03-24 10:36] LABS: Basophils % (A) 0 %; Eosinophils % (A) 1 %; HCT 38.5 % (39.0-53.0); HGB 12.3 gm/dL (13.0-17.5); Lymphocytes % (A) 15 %; MCH 29.1 pg (25.0-35.0); MCHC 31.9 g/dL (31.0-37.0); MCV 91.1 fL (80.0-100.0); Mean Platelet Volume 6.6; Monocytes # (A) 0.2 k/uL (0-1.0); Monocytes % (A) 3 %; Neutrophils # (A) 5.6 k/uL (1.3-7.7); Neutrophils % (A) 81 %; Platelet Count 400 k/uL (150-450); RBC 4.23 m/uL (4.30-5.90); RDW 13.4 % (11.5-15.5); WBC 6.9 k/uL (3.8-10.6)
[2018-03-24 10:47] LABS: ALT 112 U/L (21-72); AST 61 U/L (17-59); Alkaline Phosphatase 91 U/L (38-126); Anion Gap 8 mmol/L; Blood Urea Nitrogen 17 mg/dL (9-20); Calcium 8.3 mg/dL (8.4-10.2); Carbon Dioxide 24 mmol/L (22-30); Chloride 105 mmol/L (98-107); Glucose 110 mg/dL (74-99); Potassium 4.6 mmol/L (3.5-5.1); Sodium 137 mmol/L (137-145); Total Bilirubin 0.8 mg/dL (0.2-1.3); Total Protein 5.9 g/dL (6.3-8.2)
--- NOTE | 2018-03-24 11:11 | P.PN ---
Subjective Progress Note Date: 03/24/18 Principal diagnosis: Pneumonia Progress note dated 03/23/2018 57-year-old male who was admitted with a diagnosis of a respiratory illness that has been going on for a couple weeks. His chest x-ray and CAT scan suggesting interstitial pattern consistent with either viral or atypical pneumonia. The patient's complaints primarily included chest congestion cough and shortness of breath. He is feeling a bit better today. Somewhat of a poor historian. This process per my consultation started maybe 2-3 weeks ago. He initially had some GI complaints. He is a pretty healthy man. Has a history of multiple environmental ALLERGIES. He has no prior history of any lung disease. He is a lifelong nonsmoker. White count is 8.5 hemoglobin 11.5 hematocrit 36.8 and platelet count is normal. Electrolytes look pretty normal. Liver function tests were a little abnormal but seemed to be improving. Urine was negative. Blood urine and sputum cultures are thus far negative. A Legionella urinary antigen is pending. He is currently on Zithromax and Rocephin and breathing treatments. Progress note dated 03/24/2018 This is a 57-year-old male admitted with a diagnosis of pneumonia. He's been having symptoms for a couple of weeks prior to admission. Chest x-ray and CAT scan shows a diffuse interstitial pattern consistent with either viral or atypical pneumonia. Clinically, the patient's feeling much better. His breath is improved. He's not coughing years much. Minimal chest congestion. Not coughing up any phlegm. His today is with him. She's a better historian. He otherwise looks reasonably well. A chest x-ray was to be ordered today. He has not yet been done. I did mention to the family that sometimes the chest x-ray will right behind the clinical improvement of the patient. White count 6.9 hemoglobin 12.3 hematocrit 38.5 and platelet count normal. Electrolyte profile is normal. Microbiology is negative. Objective - Vital Signs Vital signs: Vital Signs Temp 97.0 F L 03/24/18 06:27 Pulse 96 03/24/18 09:16 Resp 18 03/24/18 07:30 BP 121/80 03/24/18 06:27 Pulse Ox 94 L 03/24/18 06:27 Intake & Output 03/23/18 03/24/18 03/24/18 18:59 06:59 18:59 Intake Total 720 250 Output Total 2200 Balance -1480 250 Weight 104.326 kg Intake: Oral 720 250 Output: Urine 2200 Other: Voiding Method Toilet Toilet # Voids 1 1 # Bowel Movements 1 1 - Exam No acute distress, oriented 3. Nasal O2 in place. No respiratory distress. HEENT examination is grossly unremarkable. Mucous membranes are moist. No oral lesions. Neck supple. Full range of motion. No adenopathy thyromegaly or neck vein distention. Cardiovascular examination reveals regular rhythm rate. S1-S2 normal. No S3 or S4. No discernible murmur noted. Lungs reveal bilateral crackles. No wheezes. No rhonchi. Breath sounds equal bilaterally. Breath sounds are definitely improved today. Abdomen soft bowel sounds are heard. No masses or tenderness. Extremities are intact. No cyanosis clubbing or edema. Skin is without rash or lesion. Neurologic examination is brief but nonfocal. - Labs CBC & Chem 7: 03/24/18 10:03 03/24/18 10:03 Labs: Abnormal Lab Results - Last 24 Hours (Table) 03/24/18 03/24/18 Range/Units 10:03 10:03 RBC 4.23 L (4.30-5.90) m/uL Hgb 12.3 L (13.0-17.5) gm/dL Hct 38.5 L (39.0-53.0) % Glucose 110 H (74-99) mg/dL Calcium 8.3 L (8.4-10.2) mg/dL AST 61 H (17-59) U/L ALT 112 H (21-72) U/L Total Protein 5.9 L (6.3-8.2) g/dL Albumin 3.0 L (3.5-5.0) g/dL Microbiology - Last 24 Hours (Table) 03/22/18 09:00 Gram Stain - Final Sputum Sputum Culture - Final 03/21/18 18:19 Blood Culture - Preliminary Blood No Growth after 48 hours 03/22/18 01:40 Urine Culture - Final Urine,Voided Assessment and Plan Assessment: Assessment Interstitial changes on chest x-ray and CAT scan, possibly consistent with interstitial pneumonia or an atypical infection. History of multiple environmental ALLERGIES No prior history of pulmonary disease. Lifelong nonsmoker Hypoxemic respiratory failure. Plan: Plan dated 03/22/2018 The patient's white count was 8.9. Hemoglobin 12.3 hematocrit 37.7 and platelet count normal. PT/INR were 12.2 and 1.3. D-dimer was 1.95. Sodium 132 potassium 4.3 chloride is 97 CO2 27. BUN and creatinine were 20 and 1.03. N-terminal proBNP was normal. Calcium 7.7 magnesium 2.8 bilirubin 1.6 AST and ALTs were 135 and 148 respectively. Urine appears to be relatively normal. The patient's chest x-ray is not too impressive but his CAT scan is impressive. He is currently on Zithromax and Rocephin. He is also getting breathing treatments. He got one dose of steroids. He is also on Mucinex Flonase nasal spray and a basic IV. I will get a Legionella urinary antigen. If not really done, he should have blood urine and sputum cultures. He may benefit from bronchoscopy did not show improvement. I will also order an angiotensin- converting enzyme level. Plan dated 03/23/2018. The patient will have a repeat chest x-ray in the morning. He continues on Rocephin and Zithromax and breathing treatments. Cultures are pending or negative. Legionella urinary antigen is currently pending. An MARCELINO level was ordered but is not back yet. Additional recommendations and suggestions are forthcoming. An infectious disease consultation would be appropriate. Plan dated 03/24/2018 The patient is certainly clinically better. Chest x-ray my opinion is about the same. He continues on breathing treatments oxygen therapy Rocephin and Zithromax. Microbiologic cultures are negative. Legionella urinary antigen is currently pending. Other testing is pending. We'll continue to follow closely. He may benefit from bronchoscopy should he not improve. Clinically as I mention, he seems to be getting better. Time with Patient: Less than 30
--- NOTE | 2018-03-24 13:33 | P.PN ---
Subjective Progress Note Date: 03/24/18 Principal diagnosis: Community-acquired pneumonia Patient is doing well today. No events overnight. Objective - Vital Signs Vital signs: Vital Signs Temp 97.0 F L 03/24/18 06:27 Pulse 94 03/24/18 11:38 Resp 18 03/24/18 07:30 BP 121/80 03/24/18 06:27 Pulse Ox 94 L 03/24/18 06:27 Intake & Output 03/23/18 03/24/18 03/24/18 18:59 06:59 18:59 Intake Total 720 250 Output Total 2200 Balance -1480 250 Weight 104.326 kg Intake: Oral 720 250 Output: Urine 2200 Other: Voiding Method Toilet Toilet # Voids 1 1 3 # Bowel Movements 1 1 - Exam General: The patient is awake and alert, in no distress Eye: there is normal conjunctiva bilaterally. Neck: The neck is supple, there is no JVD. Cardiovascular: Normal S1-S2, no S3-S4, no murmurs. Respiratory: Lungs are clear to auscultation bilaterally Gastrointestinal: Abdomen is soft, nontender Musculoskeletal: There is no pedal edema. Neurological:. Speech is normal. Skin: Skin is warm and dry - Labs CBC & Chem 7: 03/24/18 10:03 03/24/18 10:03 Labs: Abnormal Lab Results - Last 24 Hours (Table) 03/24/18 03/24/18 Range/Units 10:03 10:03 RBC 4.23 L (4.30-5.90) m/uL Hgb 12.3 L (13.0-17.5) gm/dL Hct 38.5 L (39.0-53.0) % Glucose 110 H (74-99) mg/dL Calcium 8.3 L (8.4-10.2) mg/dL AST 61 H (17-59) U/L ALT 112 H (21-72) U/L Total Protein 5.9 L (6.3-8.2) g/dL Albumin 3.0 L (3.5-5.0) g/dL Microbiology - Last 24 Hours (Table) 03/22/18 09:00 Gram Stain - Final Sputum Sputum Culture - Final 03/21/18 18:19 Blood Culture - Preliminary Blood No Growth after 48 hours 03/22/18 01:40 Urine Culture - Final Urine,Voided Assessment and Plan Assessment: 1. Community-acquired pneumonia, started on IV ceftriaxone and oral azithromycin. Sputum culture showed normal ervin. Blood culture negative to date. Legionella antigen is a send out lab and won't be back until Sunday or Sunday. Continue supportive care. Mucinex twice daily. 2. Reactive airway disease, patient is not known to have history of COPD. he was given one-time dose of Solu-Medrol 125 mg IV in the emergency room. We will continue bronchodilator. Pulmonology consulted for further evaluation. 3. Bibasilar atelectasis noted on chest x-ray, incentive spirometer ordered at bedside to be used once an hour while awake. Repeat chest x-ray showed similar findings 4. Transaminitis, trending down. exact etiology unclear. Acute hepatitis panel negative. Ultrasound of the abdomen showed no acute findings. 5. Hyponatremia, resolved with IV fluid hydration. probably related to dehydration 6. DVT prophylaxis with subcu heparin 7. Dyspnea, probably related to underlying pneumonia. Computed tomography scan of the chest showed no evidence of PE. Noted mediastinal and bronchial adenopathy probably related to underlying infection. Pulmonology consulted. Considering bronchoscopy on Sunday awaiting final recommendations, Continue current regimen. Anticipate discharge home tomorrow.
[2018-03-25] MEDS: IPRATROPIUM-ALBUTEROL 3 ML NEB INHALATION PRN ×3 (07:54→20:00)
[2018-03-25] MEDS: cefTRIAXone IN SWFI 1,000 MG/10 ML SYRINGE IVP SCH (09:38)
[2018-03-25] MEDS: AZITHROMYCIN 500 MG TAB PO SCH (09:38)
[2018-03-25] MEDS: HEPARIN SODIUM,PORCINE 5,000 UNIT/ML 1 ML VIAL SQ SCH ×2 (09:38→21:35)
[2018-03-25] MEDS: guaiFENesin 600 MG TABLET.ER PO SCH ×2 (09:38→21:35)
[2018-03-25 09:47] LABS: Basophils % (A) 0 %; Eosinophils # (A) 0.1 k/uL (0-0.7); Eosinophils % (A) 1 %; HCT 37.4 % (39.0-53.0); HGB 11.7 gm/dL (13.0-17.5); Lymphocytes # (A) 1.1 k/uL (1.0-4.8); Lymphocytes % (A) 17 %; MCH 29.1 pg (25.0-35.0); MCHC 31.4 g/dL (31.0-37.0); MCV 92.6 fL (80.0-100.0); Mean Platelet Volume 6.6; Monocytes # (A) 0.1 k/uL (0-1.0); Monocytes % (A) 2 %; Neutrophils # (A) 4.9 k/uL (1.3-7.7); Neutrophils % (A) 79 %; Platelet Count 395 k/uL (150-450); RBC 4.03 m/uL (4.30-5.90); RDW 14.4 % (11.5-15.5); WBC 6.3 k/uL (3.8-10.6)
[2018-03-25 10:02] LABS: ALT 136 U/L (21-72); AST 118 U/L (17-59); Alkaline Phosphatase 84 U/L (38-126); Anion Gap 9 mmol/L; Blood Urea Nitrogen 16 mg/dL (9-20); Calcium 8.3 mg/dL (8.4-10.2); Carbon Dioxide 24 mmol/L (22-30); Chloride 104 mmol/L (98-107); Glucose 151 mg/dL (74-99); Potassium 5.1 mmol/L (3.5-5.1); Sodium 137 mmol/L (137-145); Total Bilirubin 0.8 mg/dL (0.2-1.3); Total Protein 5.9 g/dL (6.3-8.2)
[2018-03-25] MEDS: LEVOFLOXACIN 750 MG TAB PO SCH (12:27)
--- NOTE | 2018-03-25 13:08 | P.PN ---
Subjective Progress Note Date: 03/25/18 Principal diagnosis: Interstitial pneumonia/possible atypical infection Progress note dated 03/23/2018 57-year-old male who was admitted with a diagnosis of a respiratory illness that has been going on for a couple weeks. His chest x-ray and CAT scan suggesting interstitial pattern consistent with either viral or atypical pneumonia. The patient's complaints primarily included chest congestion cough and shortness of breath. He is feeling a bit better today. Somewhat of a poor historian. This process per my consultation started maybe 2-3 weeks ago. He initially had some GI complaints. He is a pretty healthy man. Has a history of multiple environmental ALLERGIES. He has no prior history of any lung disease. He is a lifelong nonsmoker. White count is 8.5 hemoglobin 11.5 hematocrit 36.8 and platelet count is normal. Electrolytes look pretty normal. Liver function tests were a little abnormal but seemed to be improving. Urine was negative. Blood urine and sputum cultures are thus far negative. A Legionella urinary antigen is pending. He is currently on Zithromax and Rocephin and breathing treatments. Progress note dated 03/24/2018 This is a 57-year-old male admitted with a diagnosis of pneumonia. He's been having symptoms for a couple of weeks prior to admission. Chest x-ray and CAT scan shows a diffuse interstitial pattern consistent with either viral or atypical pneumonia. Clinically, the patient's feeling much better. His breath is improved. He's not coughing years much. Minimal chest congestion. Not coughing up any phlegm. His today is with him. She's a better historian. He otherwise looks reasonably well. A chest x-ray was to be ordered today. He has not yet been done. I did mention to the family that sometimes the chest x-ray will right behind the clinical improvement of the patient. White count 6.9 hemoglobin 12.3 hematocrit 38.5 and platelet count normal. Electrolyte profile is normal. Microbiology is negative. On 03/25/2018 patient seen in follow-up on medical surgical floor. Improving, no fever, no chills. Remains on 2 L per nasal cannula with pulse ox of 94%, lung sounds are positive for coarse breath sounds. Blood, urine and sputum cultures are negative. Today's chest x-ray shows the CBC of 6.3, hemoglobin of 11.7, electrolytes and renal profile are normal. AST is 118, ALT is 136, alkaline phosphatase was 84. Legionella urine antigen has been ordered, the results are not available to us right now. Patient has received 4 doses of IV Rocephin, he is currently on oral Zithromax. Yesterday's chest x-ray showed scarring versus atelectasis, and the right midlung, multiple developing right- sided pleural effusion. We will switch the patient's abiotic stew IV Levaquin, repeat chest x-ray in the morning. Patient's FiO2 was decreased down to 2 L, however patient does desaturate with walking, normally wears no oxygen. Objective - Vital Signs Vital signs: Vital Signs Temp 96.8 F L 03/25/18 06:27 Pulse 88 03/25/18 12:06 Resp 18 03/25/18 06:27 BP 104/68 03/25/18 06:27 Pulse Ox 94 L 03/25/18 11:51 Intake & Output 03/24/18 03/25/18 03/25/18 18:59 06:59 18:59 Intake Total 240 1200 480 Balance 240 1200 480 Intake: Oral 240 1200 480 Other: Voiding Method Toilet Toilet # Voids 3 2 # Bowel Movements 1 - Exam No acute distress, oriented 3. Nasal O2 in place. No respiratory distress. HEENT examination is grossly unremarkable. Mucous membranes are moist. No oral lesions. Neck supple. Full range of motion. No adenopathy thyromegaly or neck vein distention. Cardiovascular examination reveals regular rhythm rate. S1-S2 normal. No S3 or S4. No discernible murmur noted. Lungs reveal bilateral crackles. No wheezes. Coarse breath sounds Abdomen soft bowel sounds are heard. No masses or tenderness. Extremities are intact. No cyanosis clubbing or edema. Skin is without rash or lesion. Neurologic examination is brief but nonfocal. - Labs CBC & Chem 7: 03/25/18 08:59 03/25/18 08:59 Labs: Abnormal Lab Results - Last 24 Hours (Table) 03/25/18 03/25/18 Range/Units 08:59 08:59 RBC 4.03 L (4.30-5.90) m/uL Hgb 11.7 L (13.0-17.5) gm/dL Hct 37.4 L (39.0-53.0) % Glucose 151 H (74-99) mg/dL Calcium 8.3 L (8.4-10.2) mg/dL AST 118 H (17-59) U/L ALT 136 H (21-72) U/L Total Protein 5.9 L (6.3-8.2) g/dL Albumin 3.0 L (3.5-5.0) g/dL Microbiology - Last 24 Hours (Table) 03/21/18 18:19 Blood Culture - Preliminary Blood No Growth after 72 hours 03/22/18 09:00 Gram Stain - Final Sputum Sputum Culture - Final Assessment and Plan Plan: Assessment: Interstitial changes on chest x-ray and CAT scan, possibly consistent with interstitial pneumonia or an atypical infection. History of multiple environmental ALLERGIES No prior history of pulmonary disease. Lifelong nonsmoker Hypoxemic respiratory failure. Plan: The patient continues to improve, requiring less oxygen, but does desaturate with ambulation. Cultures remain negative, Legionella urinary antigen is still pending. Patient has completed a course of Rocephin, remains on Zithromax. In view of the possibility of a gram-negative atypical infection, we will go ahead and switch Zithromax to oral Levaquin. We will repeat chest x-ray in the morning. I performed a history & physical examination of the patient and discussed their management with my nurse practitioner, Terar Joe. I reviewed the nurse practitioner's note and agree with the documented findings and plan of care. Lung sounds are positive for coarse breath sounds. The findings and the impression was discussed with the patient. I attest to the documentation by the nurse practitioner. Time with Patient: Less than 30
--- NOTE | 2018-03-25 13:09 | P.PN ---
Subjective Progress Note Date: 03/25/18 Principal diagnosis: Community-acquired pneumonia Patient is doing well today. No events overnight. He is still requiring oxygen 2-3 L via nasal cannula. Patient himself denies any shortness of breath at rest. He is feeling very dyspneic walking around. Objective - Vital Signs Vital signs: Vital Signs Temp 96.8 F L 03/25/18 06:27 Pulse 88 03/25/18 12:06 Resp 18 03/25/18 06:27 BP 104/68 03/25/18 06:27 Pulse Ox 94 L 03/25/18 11:51 Intake & Output 03/24/18 03/25/18 03/25/18 18:59 06:59 18:59 Intake Total 240 1200 480 Balance 240 1200 480 Intake: Oral 240 1200 480 Other: Voiding Method Toilet Toilet # Voids 3 2 # Bowel Movements 1 - Exam General: The patient is awake and alert, in no distress Eye: there is normal conjunctiva bilaterally. Neck: The neck is supple, there is no JVD. Cardiovascular: Normal S1-S2, no S3-S4, no murmurs. Respiratory: Lungs are clear to auscultation bilaterally Gastrointestinal: Abdomen is soft, nontender Musculoskeletal: There is no pedal edema. Neurological:. Speech is normal. Skin: Skin is warm and dry - Labs CBC & Chem 7: 03/25/18 08:59 03/25/18 08:59 Labs: Abnormal Lab Results - Last 24 Hours (Table) 03/25/18 03/25/18 Range/Units 08:59 08:59 RBC 4.03 L (4.30-5.90) m/uL Hgb 11.7 L (13.0-17.5) gm/dL Hct 37.4 L (39.0-53.0) % Glucose 151 H (74-99) mg/dL Calcium 8.3 L (8.4-10.2) mg/dL AST 118 H (17-59) U/L ALT 136 H (21-72) U/L Total Protein 5.9 L (6.3-8.2) g/dL Albumin 3.0 L (3.5-5.0) g/dL Microbiology - Last 24 Hours (Table) 03/21/18 18:19 Blood Culture - Preliminary Blood No Growth after 72 hours 03/22/18 09:00 Gram Stain - Final Sputum Sputum Culture - Final Assessment and Plan Assessment: 1. Community-acquired pneumonia, started on IV ceftriaxone and oral azithromycin. Sputum culture showed normal ervin. Blood culture negative to date. Legionella antigen is a send out lab and won't be back until Sunday or Sunday. Continue supportive care. Mucinex twice daily. Antibiotics changed to Levaquin by pulmonolory team on 03/25 2. Reactive airway disease, patient is not known to have history of COPD. he was given one-time dose of Solu-Medrol 125 mg IV in the emergency room. We will continue bronchodilator. Pulmonology consulted for further evaluation. 3. Bibasilar atelectasis noted on chest x-ray, incentive spirometer ordered at bedside to be used once an hour while awake. Repeat chest x-ray showed similar findings 4. Transaminitis, trending down. exact etiology unclear. Acute hepatitis panel negative. Ultrasound of the abdomen showed no acute findings. 5. Hyponatremia, resolved with IV fluid hydration. probably related to dehydration 6. DVT prophylaxis with subcu heparin 7. Dyspnea, probably related to underlying pneumonia. Computed tomography scan of the chest showed no evidence of PE. Noted mediastinal and bronchial adenopathy probably related to underlying infection. Pulmonology consulted. Considering bronchoscopy on Sunday awaiting final recommendations, 8. Acute hypoxic respiratory failure: O2 sat dropping to 87% on room air with ambulation with a heart rate up to 115. Patient is still requiring oxygen. Pulmonary service following. There is discussion about possible bronchoscopy awaiting final recommendations. Continue current regimen. Anticipate discharge home within the next day or 2
--- NOTE | 2018-03-26 08:19 | XR ---
EXAMINATION TYPE: XR chest 2V DATE OF EXAM: 03/26/2018 COMPARISON: 03/24/2018 INDICATION: Bilateral pneumonia TECHNIQUE: Frontal and lateral views of the chest are obtained. FINDINGS: The heart size is normal. The pulmonary vasculature is normal. Minimal infiltrate is at the left base in the right costophrenic angle. Atelectasis as well as resolv ing pneumonia are within the differential. Lungs are otherwise clear. IMPRESSION: 1. Resolving bibasilar infiltrates discussed above.
[2018-03-26 08:36] LABS: Basophils % (A) 1 %; Eosinophils # (A) 0.1 k/uL (0-0.7); Eosinophils % (A) 2 %; HCT 39.4 % (39.0-53.0); HGB 12.6 gm/dL (13.0-17.5); Lymphocytes # (A) 1.4 k/uL (1.0-4.8); Lymphocytes % (A) 23 %; MCH 29.4 pg (25.0-35.0); MCHC 31.9 g/dL (31.0-37.0); MCV 92.2 fL (80.0-100.0); Mean Platelet Volume 6.4; Monocytes # (A) 0.2 k/uL (0-1.0); Monocytes % (A) 3 %; Neutrophils # (A) 4.3 k/uL (1.3-7.7); Neutrophils % (A) 70 %; Platelet Count 444 k/uL (150-450); RBC 4.27 m/uL (4.30-5.90); RDW 13.6 % (11.5-15.5); WBC 6.1 k/uL (3.8-10.6)
[2018-03-26] MEDS: HEPARIN SODIUM,PORCINE 5,000 UNIT/ML 1 ML VIAL SQ SCH ×2 (08:44→21:53)
[2018-03-26] MEDS: LEVOFLOXACIN 750 MG TAB PO SCH (08:45)
[2018-03-26] MEDS: guaiFENesin 600 MG TABLET.ER PO SCH ×2 (08:45→21:52)
[2018-03-26 08:52] LABS: ALT 167 U/L (21-72); AST 112 U/L (17-59); Albumin 3.5 g/dL (3.5-5.0); Alkaline Phosphatase 94 U/L (38-126); Anion Gap 9 mmol/L; Blood Urea Nitrogen 16 mg/dL (9-20); Calcium 8.9 mg/dL (8.4-10.2); Carbon Dioxide 25 mmol/L (22-30); Chloride 103 mmol/L (98-107); Glucose 91 mg/dL (74-99); Potassium 5.2 mmol/L (3.5-5.1); Sodium 137 mmol/L (137-145); Total Bilirubin 0.9 mg/dL (0.2-1.3); Total Protein 6.7 g/dL (6.3-8.2)
--- NOTE | 2018-03-26 10:59 | P.PN ---
Subjective Progress Note Date: 03/26/18 Principal diagnosis: Pneumonia Patient was seen and examined. No acute events overnight. On 2L NC. States improved breathing since admission but continues to be SOB. Coughing up white/ clear sputum and complains of chills. Never smoker, drinks 1-2 beers 4-5 times weekly. Endorses dizziness when ambulating. Objective - Vital Signs Vital signs: Vital Signs Temp 97.6 F 03/26/18 07:00 Pulse 75 03/26/18 07:00 Resp 18 03/26/18 07:00 BP 97/57 03/26/18 07:00 Pulse Ox 90 L 03/26/18 07:00 Intake & Output 03/25/18 03/26/18 03/26/18 18:59 06:59 18:59 Intake Total 680 2100 Balance 680 2100 Intake: Oral 680 2100 Other: Voiding Method Toilet # Voids 2 2 # Bowel Movements 0 - Exam Constitutional: Patient is in no acute distress. Sitting up at the side of the bed. HEENT: NC/AT. Neck: Normal ROM of the neck. No cervical LAD. Resp: Good air entry bilaterally. Crackles R base. No wheezing. Saturating 91% on 2L NC. CVS: Normal S1 S2. Tachycardic. No murmurs, rubs or gallops. GI: Soft, non-tender to palpation, no masses palpable. : Deferred. MSK: No LE edema. Neuro: AO x 3 - Labs CBC & Chem 7: 03/26/18 08:01 03/26/18 08:01 Labs: Abnormal Lab Results - Last 24 Hours (Table) 03/26/18 03/26/18 Range/Units 08:01 08:01 RBC 4.27 L (4.30-5.90) m/uL Hgb 12.6 L (13.0-17.5) gm/dL Potassium 5.2 H (3.5-5.1) mmol/L AST 112 H (17-59) U/L ALT 167 H (21-72) U/L Microbiology - Last 24 Hours (Table) 03/21/18 18:19 Blood Culture - Preliminary Blood No Growth after 96 hours Assessment and Plan Assessment: Assessment 57 year old M with no PMH presents to the ED for fever, cough and SOB. Found to have a pneumonia and admitted for hypoxia requiring O2 and IV Abx. Plan 1. Community acquired Pneumonia: Likely cause for SOB, cough and fever. No fever or leukocytosis documented since admission. CTA ruled out PE but confirms bilateral pulmonary infiltrates. CXR 03/26 shows resolving bibasilar infiltrates. Patient was initially started on Ceftriaxone and Azithromycin IV but was switched for Levaquin IV for GN coverage per Pulm. Sputum Cx shows normal ervin, BCx 96H prelim negative, Legionella UAg negative. Continue Mucinex 1200mg PO BID, DuoNeb Q2H PRN for SOB, Levofloxacin 750 mg PO daily. Incentive spirometry for atelectasis. O2 per NC to maintain O2 sat > 92%. Will need 6 min walk test prior to DC. FU Pulmonology for possible bronchoscopy. 2. Transaminitis: h/o drinking 1-2 beers 4-5 times/ week. Acute hep panel negative. Liver US shows simple cysts. [FU Lipid panel] 3. Hyperkalemia: K 5.2. Unknown etiology. Patient asymptomatic. [FU CPK] 4. Anemia: Hg 12.3 Hct 37.7 MCV 88. [FU Iron studies] 5. Hyponatremia: Resolved. Improved with IVF, likely due to dehydration. Na 137 this morning. 6. Dispo: Patient continues to require O2. He is saturating 91% on 2 L while sitting in bed. I anticipate his O2 level to drop with ambulation. Patient is uninsured, will require 6 minute walk test and SW assistance for O2 prior to DC if required. Time with Patient: Less than 30
[2018-03-26] MEDS: IPRATROPIUM-ALBUTEROL 3 ML NEB INHALATION PRN ×3 (11:41→19:37)
--- NOTE | 2018-03-26 12:08 | P.PN ---
Subjective Progress Note Date: 03/26/18 Principal diagnosis: Atypical pneumonia Progress note dated 03/23/2018 57-year-old male who was admitted with a diagnosis of a respiratory illness that has been going on for a couple weeks. His chest x-ray and CAT scan suggesting interstitial pattern consistent with either viral or atypical pneumonia. The patient's complaints primarily included chest congestion cough and shortness of breath. He is feeling a bit better today. Somewhat of a poor historian. This process per my consultation started maybe 2-3 weeks ago. He initially had some GI complaints. He is a pretty healthy man. Has a history of multiple environmental ALLERGIES. He has no prior history of any lung disease. He is a lifelong nonsmoker. White count is 8.5 hemoglobin 11.5 hematocrit 36.8 and platelet count is normal. Electrolytes look pretty normal. Liver function tests were a little abnormal but seemed to be improving. Urine was negative. Blood urine and sputum cultures are thus far negative. A Legionella urinary antigen is pending. He is currently on Zithromax and Rocephin and breathing treatments. Progress note dated 03/24/2018 This is a 57-year-old male admitted with a diagnosis of pneumonia. He's been having symptoms for a couple of weeks prior to admission. Chest x-ray and CAT scan shows a diffuse interstitial pattern consistent with either viral or atypical pneumonia. Clinically, the patient's feeling much better. His breath is improved. He's not coughing years much. Minimal chest congestion. Not coughing up any phlegm. His today is with him. She's a better historian. He otherwise looks reasonably well. A chest x-ray was to be ordered today. He has not yet been done. I did mention to the family that sometimes the chest x-ray will right behind the clinical improvement of the patient. White count 6.9 hemoglobin 12.3 hematocrit 38.5 and platelet count normal. Electrolyte profile is normal. Microbiology is negative. On 03/25/2018 patient seen in follow-up on medical surgical floor. Improving, no fever, no chills. Remains on 2 L per nasal cannula with pulse ox of 94%, lung sounds are positive for coarse breath sounds. Blood, urine and sputum cultures are negative. Today's chest x-ray shows the CBC of 6.3, hemoglobin of 11.7, electrolytes and renal profile are normal. AST is 118, ALT is 136, alkaline phosphatase was 84. Legionella urine antigen has been ordered, the results are not available to us right now. Patient has received 4 doses of IV Rocephin, he is currently on oral Zithromax. Yesterday's chest x-ray showed scarring versus atelectasis, and the right midlung, multiple developing right- sided pleural effusion. We will switch the patient's abiotic stew IV Levaquin, repeat chest x-ray in the morning. Patient's FiO2 was decreased down to 2 L, however patient does desaturate with walking, normally wears no oxygen. The patient is seen again today 03/26/2018 in follow-up on the regular medical floor. He is currently awake and alert in no acute distress. He is breathing a bit better today as compared to yesterday. He did however have difficulty in breathing once exposed to some chemicals from housekeeping cleaning the bed next to him last evening. He has since recovered. He continues to maintain O2 saturations in the 90s on 2 L/m per nasal cannula. He still has few scattered rhonchi. Dyspnea with minimal exertion. Sputum, urine, blood cultures reveal no growth. Urine Legionella antigen is negative. He is currently on bronchodilators, Mucinex and Levaquin. Objective - Vital Signs Vital signs: Vital Signs Temp 97.6 F 03/26/18 07:00 Pulse 96 03/26/18 11:50 Resp 18 03/26/18 07:00 BP 97/57 03/26/18 07:00 Pulse Ox 93 L 03/26/18 11:19 Intake & Output 03/25/18 03/26/18 03/26/18 18:59 06:59 18:59 Intake Total 680 2100 Output Total 1100 Balance 680 2100 -1100 Weight 104.326 kg Intake: Oral 680 2100 Output: Urine 1100 Other: Voiding Method Toilet Toilet # Voids 2 2 2 # Bowel Movements 0 - Exam - Exam No acute distress, oriented 3. Nasal O2 in place. No respiratory distress. HEENT examination is grossly unremarkable. Mucous membranes are moist. No oral lesions. Neck supple. Full range of motion. No adenopathy thyromegaly or neck vein distention. Cardiovascular examination reveals regular rhythm rate. S1-S2 normal. No S3 or S4. No discernible murmur noted. Lungs reveal bilateral crackles. No wheezes. Coarse breath sounds Abdomen soft bowel sounds are heard. No masses or tenderness. Extremities are intact. No cyanosis clubbing or edema. Skin is without rash or lesion. Neurologic examination is brief but nonfocal. - Labs CBC & Chem 7: 03/26/18 08:01 03/26/18 08:01 Labs: Abnormal Lab Results - Last 24 Hours (Table) 03/26/18 03/26/18 Range/Units 08:01 08:01 RBC 4.27 L (4.30-5.90) m/uL Hgb 12.6 L (13.0-17.5) gm/dL Potassium 5.2 H (3.5-5.1) mmol/L AST 112 H (17-59) U/L ALT 167 H (21-72) U/L Microbiology - Last 24 Hours (Table) 03/21/18 18:19 Blood Culture - Preliminary Blood No Growth after 96 hours Assessment and Plan Assessment: Assessment: Interstitial changes on chest x-ray and CAT scan, possibly consistent with interstitial pneumonia or an atypical infection. History of multiple environmental ALLERGIES No prior history of pulmonary disease. Lifelong nonsmoker Hypoxemic respiratory failure. Plan: The patient was seen and evaluated by Dr. Clancy. The patient has been slow to progress. We may consider bronchoscopy with BAL in the a.m. if not much improved. In the interim we'll continue with the current treatment plan. We will increase his activity as tolerated. We'll titrate down the FiO2 will maintaining O2 saturations in the 90s. We'll continue to follow. I, the cosigning physician, performed a history & physical examination of the patient. Lungs sounds with few scattered rhonchi, diminished. Maintaining good O2 saturations in the 90s on 2 L/m per nasal cannula. I discussed the assessment and plan of care with my nurse practitioner, Maddy Phelps. I attest to the above note as dictated by her.
[2018-03-27] MEDS: IPRATROPIUM-ALBUTEROL 3 ML NEB INHALATION PRN ×3 (07:32→19:20)
--- NOTE | 2018-03-27 09:09 | P.PN ---
Subjective Progress Note Date: 03/27/18 Principal diagnosis: Pneumonia Patient was seen and examined. No acute events overnight. Saturating 86-90% on RA today. Patient reports no improvement in breathing. He is on Levofloxacin PO (day 2). Patient reports dizziness when standing up and moving around. Objective - Vital Signs Vital signs: Vital Signs Temp 97.0 F L 03/27/18 06:10 Pulse 73 03/27/18 07:42 Resp 16 03/27/18 06:10 BP 107/74 03/27/18 06:10 Pulse Ox 91 L 03/27/18 06:10 Intake & Output 03/26/18 03/27/18 03/27/18 18:59 06:59 18:59 Intake Total 240 Output Total 1100 Balance -860 Weight 104.326 kg Intake: Oral 240 Output: Urine 1100 Other: Voiding Method Toilet Toilet # Voids 2 1 - Exam General: non toxic, no distress, appears at stated age Derm: warm, dry Head: atraumatic, normocephalic, symmetric Eyes: EOMI, no lid lag, anicteric sclera Mouth: no lip lesion, mucus membranes moist Cardiovascular: S1S2 reg, no murmur Lungs: Good air entry bilaterally, rhonchi noted at the right base, no accessory muscle use Abdominal: soft, nontender to palpation, no guarding, no appreciable organomegaly Ext: no gross muscle atrophy, no edema, no contractures Neuro: CN II-XI grossly intact, no focal neuro deficits Psych: Alert, oriented, appropriate affect - Labs CBC & Chem 7: 03/26/18 08:01 03/26/18 08:01 Labs: Microbiology - Last 24 Hours (Table) 03/21/18 18:19 Blood Culture - Preliminary Blood No Growth after 120 hours Assessment and Plan Assessment: Assessment 57 year old M with no PMH presents to the ED for fever, cough and SOB. Found to have a pneumonia and admitted for hypoxia requiring O2 and IV Abx. Plan Community acquired Pneumonia: Likely cause for SOB, cough and fever. No fever or leukocytosis documented since admission. CTA ruled out PE but confirms bilateral pulmonary infiltrates. CXR 03/26 shows resolving bibasilar infiltrates. Patient was initially started on Ceftriaxone and Azithromycin IV but was switched for Levaquin IV for GN coverage per Pulm. Sputum Cx shows normal ervin, BCx 96H prelim negative, Legionella UAg negative. Continue Mucinex 1200mg PO BID, DuoNeb Q2H PRN for SOB, Levofloxacin 750 mg PO daily ( day 3). Incentive spirometry for atelectasis. O2 per NC to maintain O2 sat > 92% . Will need 6 min walk test prior to DC. FU CXR, possible bronchoscopy with BAL by Pulmonology due to minimal improvement (patient remains hypoxic despite Abx Rx) Transaminitis: h/o drinking 1-2 beers 4-5 times/ week. Acute hep panel negative. Liver US shows simple cysts. Will trend. FU Lipid panel, Ferritin Hyperkalemia: K 5.2. Unknown etiology. Patient asymptomatic. FU CPK Anemia: Hg 12.6 Hct 39.4 MCV 92.2. Stable. Will continue to monitor. FU Iron studies Hyponatremia: Resolved. Improved with IVF, likely due to dehydration. Most recent Na 137. Dispo: Patient continues to require O2. He is saturating 86% on RA while sitting in bed. I anticipate his O2 level to drop with ambulation. Patient is uninsured, will require 6 minute walk test and SW assistance for O2 prior to DC if required.
[2018-03-27 09:19] LABS: Basophils % (A) 0 %; Eosinophils # (A) 0.1 k/uL (0-0.7); Eosinophils % (A) 2 %; HCT 39.6 % (39.0-53.0); HGB 12.8 gm/dL (13.0-17.5); Lymphocytes # (A) 1.4 k/uL (1.0-4.8); Lymphocytes % (A) 30 %; MCH 29.6 pg (25.0-35.0); MCHC 32.2 g/dL (31.0-37.0); Mean Platelet Volume 6.3; Monocytes # (A) 0.2 k/uL (0-1.0); Monocytes % (A) 4 %; Neutrophils # (A) 2.9 k/uL (1.3-7.7); Neutrophils % (A) 61 %; Platelet Count 438 k/uL (150-450); RBC 4.31 m/uL (4.30-5.90); RDW 13.9 % (11.5-15.5); WBC 4.8 k/uL (3.8-10.6)
[2018-03-27 09:27] LABS: ALT 149 U/L (21-72); AST 74 U/L (17-59); Albumin 3.4 g/dL (3.5-5.0); Alkaline Phosphatase 93 U/L (38-126); Anion Gap 9 mmol/L; Blood Urea Nitrogen 20 mg/dL (9-20); Calcium 8.8 mg/dL (8.4-10.2); Carbon Dioxide 23 mmol/L (22-30); Chloride 106 mmol/L (98-107); Cholesterol 147 mg/dL (<200); Creatine Kinase 183 U/L (55-170); Glucose 108 mg/dL (74-99); HDL Cholesterol 34 mg/dL (40-60); LDL Cholesterol,Calculated 90 mg/dL (0-99); Potassium 4.9 mmol/L (3.5-5.1); Sodium 138 mmol/L (137-145); Total Bilirubin 0.9 mg/dL (0.2-1.3); Total Protein 6.6 g/dL (6.3-8.2); Triglycerides 116 mg/dL (<150)
[2018-03-27] MEDS: HEPARIN SODIUM,PORCINE 5,000 UNIT/ML 1 ML VIAL SQ SCH ×2 (09:48→20:39)
[2018-03-27] MEDS: LEVOFLOXACIN 750 MG TAB PO SCH (09:49)
[2018-03-27] MEDS: guaiFENesin 600 MG TABLET.ER PO SCH ×2 (09:49→20:40)
--- NOTE | 2018-03-27 12:15 | XR ---
EXAMINATION TYPE: XR chest 2V DATE OF EXAM: 03/27/2018 COMPARISON: Chest x-ray yesterday and older studies. CT chest March 21, 2018 HISTORY: Pneumonia progress study TECHNIQUE: Frontal and lateral views of the chest are obtained. FINDINGS: There is persistent reticulonodular opacities in the lung bases with additional linear opa city right lung base. Faint infiltrates right upper lobe are seen better on CT. Additional reticulon odular infiltrates on CT are less well seen on plain films but likely some persistence in the right u pper lung is felt present. No pleural effusion or pneumothorax is seen bilaterally. The cardiac silho uette size is stable and within normal limits. Moderate multilevel spurring in thoracic spine is rede monstrated. IMPRESSION: Persistent scattered reticulonodular infiltrates most prominent right upper lobe and bi lateral lung bases. No significant change from most recent chest x-ray.
[2018-03-27 12:56] VITALS: BMI 32.1
--- NOTE | 2018-03-27 13:25 | P.PN ---
Subjective Progress Note Date: 03/27/18 Principal diagnosis: Atypical pneumonia Progress note dated 03/23/2018 57-year-old male who was admitted with a diagnosis of a respiratory illness that has been going on for a couple weeks. His chest x-ray and CAT scan suggesting interstitial pattern consistent with either viral or atypical pneumonia. The patient's complaints primarily included chest congestion cough and shortness of breath. He is feeling a bit better today. Somewhat of a poor historian. This process per my consultation started maybe 2-3 weeks ago. He initially had some GI complaints. He is a pretty healthy man. Has a history of multiple environmental ALLERGIES. He has no prior history of any lung disease. He is a lifelong nonsmoker. White count is 8.5 hemoglobin 11.5 hematocrit 36.8 and platelet count is normal. Electrolytes look pretty normal. Liver function tests were a little abnormal but seemed to be improving. Urine was negative. Blood urine and sputum cultures are thus far negative. A Legionella urinary antigen is pending. He is currently on Zithromax and Rocephin and breathing treatments. Progress note dated 03/24/2018 This is a 57-year-old male admitted with a diagnosis of pneumonia. He's been having symptoms for a couple of weeks prior to admission. Chest x-ray and CAT scan shows a diffuse interstitial pattern consistent with either viral or atypical pneumonia. Clinically, the patient's feeling much better. His breath is improved. He's not coughing years much. Minimal chest congestion. Not coughing up any phlegm. His today is with him. She's a better historian. He otherwise looks reasonably well. A chest x-ray was to be ordered today. He has not yet been done. I did mention to the family that sometimes the chest x-ray will right behind the clinical improvement of the patient. White count 6.9 hemoglobin 12.3 hematocrit 38.5 and platelet count normal. Electrolyte profile is normal. Microbiology is negative. On 03/25/2018 patient seen in follow-up on medical surgical floor. Improving, no fever, no chills. Remains on 2 L per nasal cannula with pulse ox of 94%, lung sounds are positive for coarse breath sounds. Blood, urine and sputum cultures are negative. Today's chest x-ray shows the CBC of 6.3, hemoglobin of 11.7, electrolytes and renal profile are normal. AST is 118, ALT is 136, alkaline phosphatase was 84. Legionella urine antigen has been ordered, the results are not available to us right now. Patient has received 4 doses of IV Rocephin, he is currently on oral Zithromax. Yesterday's chest x-ray showed scarring versus atelectasis, and the right midlung, multiple developing right- sided pleural effusion. We will switch the patient's abiotic stew IV Levaquin, repeat chest x-ray in the morning. Patient's FiO2 was decreased down to 2 L, however patient does desaturate with walking, normally wears no oxygen. The patient is seen again today 03/26/2018 in follow-up on the regular medical floor. He is currently awake and alert in no acute distress. He is breathing a bit better today as compared to yesterday. He did however have difficulty in breathing once exposed to some chemicals from housekeeping cleaning the bed next to him last evening. He has since recovered. He continues to maintain O2 saturations in the 90s on 2 L/m per nasal cannula. He still has few scattered rhonchi. Dyspnea with minimal exertion. Sputum, urine, blood cultures reveal no growth. Urine Legionella antigen is negative. He is currently on bronchodilators, Mucinex and Levaquin. The patient is seen again today 03/27/2018 in follow-up on the regular medical floor. He is awake and alert in no acute distress. He still has a loose nonproductive cough. He is maintaining O2 saturations in the low 90s on room air now. He's been afebrile. Blood, urine and sputum cultures reveal no growth. Still feels he cannot clear his secretions. The plan is for bronchoscopy with BAL today. Objective - Vital Signs Vital signs: Vital Signs Temp 97.0 F L 03/27/18 06:10 Pulse 76 03/27/18 11:48 Resp 16 03/27/18 06:10 BP 107/74 03/27/18 06:10 Pulse Ox 91 L 03/27/18 06:10 Intake & Output 03/26/18 03/27/18 03/27/18 18:59 06:59 18:59 Intake Total 240 Output Total 1100 Balance -860 Weight 104.326 kg 104.326 kg Intake: Oral 240 Output: Urine 1100 Other: Voiding Method Toilet Toilet Toilet # Voids 2 1 1 - Exam - Exam No acute distress, oriented 3. On room air now. No respiratory distress. HEENT examination is grossly unremarkable. Mucous membranes are moist. No oral lesions. Neck supple. Full range of motion. No adenopathy thyromegaly or neck vein distention. Cardiovascular examination reveals regular rhythm rate. S1-S2 normal. No S3 or S4. No discernible murmur noted. Lungs reveal bilateral crackles. No wheezes. Coarse breath sounds Abdomen soft bowel sounds are heard. No masses or tenderness. Extremities are intact. No cyanosis clubbing or edema. Skin is without rash or lesion. Neurologic examination is brief but nonfocal. - Labs CBC & Chem 7: 03/27/18 08:48 03/27/18 08:48 Labs: Abnormal Lab Results - Last 24 Hours (Table) 03/27/18 03/27/18 Range/Units 08:48 08:48 Hgb 12.8 L (13.0-17.5) gm/dL Glucose 108 H (74-99) mg/dL AST 74 H (17-59) U/L ALT 149 H (21-72) U/L Creatine Kinase 183 H (55-170) U/L Albumin 3.4 L (3.5-5.0) g/dL HDL Cholesterol 34 L (40-60) mg/dL Microbiology - Last 24 Hours (Table) 03/21/18 18:19 Blood Culture - Preliminary Blood No Growth after 120 hours Assessment and Plan Assessment: Assessment: Interstitial changes on chest x-ray and CAT scan, possibly consistent with interstitial pneumonia or an atypical infection. History of multiple environmental ALLERGIES No prior history of pulmonary disease. Lifelong nonsmoker Hypoxemic respiratory failure. Plan: The patient was seen and evaluated by Dr. Clancy. The patient has been slow to progress. Bronchoscopy with BAL today. In the interim we'll continue with the current treatment plan. We will increase his activity as tolerated. We'll continue to follow. I, the cosigning physician, performed a history & physical examination of the patient. Lungs sounds with few scattered rhonchi, diminished. Maintaining good O2 saturations in the 90s on room air. I discussed the assessment and plan of care with my nurse practitioner, Maddy Phelps. I attest to the above note as dictated by her.
[2018-03-27] MEDS ORDERED: MIDAZOLAM 2 MG/2 ML VIAL ONE (14:04)
[2018-03-27] MEDS ORDERED: KETAMINE 10 MG/ML 20 ML VIAL ONE (14:04)
[2018-03-27] MEDS ORDERED: PROPOFOL 10 MG/ML 20 ML VIAL IV ONE (14:04)
[2018-03-27] MEDS ORDERED: LIDOCAINE 1% INJ 10MG/ML (20 ML MDV) ONE (14:04)
[2018-03-27] MEDS ORDERED: fentaNYL (PF) 50 MCG/ML 2 ML AMP ONE (14:04)
[2018-03-27] MEDS ORDERED: IV FLUID CONTINUATION 950 ML IV ONE (14:10)
[2018-03-27] MEDS ORDERED: LIDOCAINE 1% INJ 10MG/ML (20 ML MDV) INTRATRACH ONE (14:35)
[2018-03-27] MEDS: PROMETHAZ-COD 6.25-10 MG/5 ML 5 ML CUP PO PRN ×2 (15:43→22:00)
[2018-03-27] MEDS: methylPREDNISolone SOD SUCCI 125 MG/2 ML VIAL IV SCH ×3 (15:43→23:56)
[2018-03-27 16:04] LABS: Iron Saturation 37.73 (15.00-50.00)
[2018-03-27 20:20] LABS: Appearance,BF Bloody; Nucleated Cells, Body Fluid 600 /uL; RBC, Body Fluid 213000 /uL
[2018-03-27 20:22] LABS: Mononuclear WBC,Body Fluid 76 %; Polynuclear WBC,Body Fluid 24 %; Total Cells Counted,Body Fluid 100
[2018-03-27] MEDS: INSULIN ASPART 100 UNIT/ML 1 ML 10 ML VIAL SQ SCH (20:40)
[2018-03-27 20:46] LABS: Glucose,Whole Blood 179 mg/dL (75-99)
[2018-03-28] MEDS: methylPREDNISolone SOD SUCCI 125 MG/2 ML VIAL IV SCH ×4 (06:03→22:55)
[2018-03-28] MEDS: PROMETHAZ-COD 6.25-10 MG/5 ML 5 ML CUP PO PRN ×2 (06:09→12:11)
[2018-03-28 07:21] LABS: Glucose,Whole Blood 163 mg/dL (75-99)
[2018-03-28] MEDS: IPRATROPIUM-ALBUTEROL 3 ML NEB INHALATION PRN ×4 (07:33→20:20)
[2018-03-28] MEDS: HEPARIN SODIUM,PORCINE 5,000 UNIT/ML 1 ML VIAL SQ SCH ×2 (07:59→20:58)
[2018-03-28] MEDS: guaiFENesin 600 MG TABLET.ER PO SCH ×2 (07:59→20:58)
[2018-03-28] MEDS: LEVOFLOXACIN 750 MG TAB PO SCH (07:59)
[2018-03-28] MEDS: INSULIN ASPART 100 UNIT/ML 1 ML 10 ML VIAL SQ SCH ×4 (07:59→21:18)
[2018-03-28 08:14] LABS: Basophils % (A) 0 %; Eosinophils % (A) 0 %; HCT 38.5 % (39.0-53.0); HGB 11.9 gm/dL (13.0-17.5); Lymphocytes # (A) 0.6 k/uL (1.0-4.8); Lymphocytes % (A) 11 %; MCH 28.2 pg (25.0-35.0); MCHC 31.1 g/dL (31.0-37.0); MCV 90.8 fL (80.0-100.0); Mean Platelet Volume 6.4; Monocytes # (A) 0.1 k/uL (0-1.0); Monocytes % (A) 2 %; Neutrophils # (A) 4.8 k/uL (1.3-7.7); Neutrophils % (A) 86 %; Platelet Count 475 k/uL (150-450); RBC 4.23 m/uL (4.30-5.90); RDW 13.6 % (11.5-15.5); WBC 5.6 k/uL (3.8-10.6)
[2018-03-28 08:32] LABS: ALT 143 U/L (21-72); AST 57 U/L (17-59); Albumin 3.4 g/dL (3.5-5.0); Alkaline Phosphatase 84 U/L (38-126); Anion Gap 10 mmol/L; Blood Urea Nitrogen 21 mg/dL (9-20); Calcium 8.9 mg/dL (8.4-10.2); Carbon Dioxide 22 mmol/L (22-30); Chloride 104 mmol/L (98-107); Glucose 159 mg/dL (74-99); Potassium 5.3 mmol/L (3.5-5.1); Sodium 136 mmol/L (137-145); Total Bilirubin 0.6 mg/dL (0.2-1.3); Total Protein 6.5 g/dL (6.3-8.2)
--- NOTE | 2018-03-28 11:53 | P.PN ---
Subjective Progress Note Date: 03/28/18 Principal diagnosis: Atypical pneumonia Progress note dated 03/23/2018 57-year-old male who was admitted with a diagnosis of a respiratory illness that has been going on for a couple weeks. His chest x-ray and CAT scan suggesting interstitial pattern consistent with either viral or atypical pneumonia. The patient's complaints primarily included chest congestion cough and shortness of breath. He is feeling a bit better today. Somewhat of a poor historian. This process per my consultation started maybe 2-3 weeks ago. He initially had some GI complaints. He is a pretty healthy man. Has a history of multiple environmental ALLERGIES. He has no prior history of any lung disease. He is a lifelong nonsmoker. White count is 8.5 hemoglobin 11.5 hematocrit 36.8 and platelet count is normal. Electrolytes look pretty normal. Liver function tests were a little abnormal but seemed to be improving. Urine was negative. Blood urine and sputum cultures are thus far negative. A Legionella urinary antigen is pending. He is currently on Zithromax and Rocephin and breathing treatments. Progress note dated 03/24/2018 This is a 57-year-old male admitted with a diagnosis of pneumonia. He's been having symptoms for a couple of weeks prior to admission. Chest x-ray and CAT scan shows a diffuse interstitial pattern consistent with either viral or atypical pneumonia. Clinically, the patient's feeling much better. His breath is improved. He's not coughing years much. Minimal chest congestion. Not coughing up any phlegm. His today is with him. She's a better historian. He otherwise looks reasonably well. A chest x-ray was to be ordered today. He has not yet been done. I did mention to the family that sometimes the chest x-ray will right behind the clinical improvement of the patient. White count 6.9 hemoglobin 12.3 hematocrit 38.5 and platelet count normal. Electrolyte profile is normal. Microbiology is negative. On 03/25/2018 patient seen in follow-up on medical surgical floor. Improving, no fever, no chills. Remains on 2 L per nasal cannula with pulse ox of 94%, lung sounds are positive for coarse breath sounds. Blood, urine and sputum cultures are negative. Today's chest x-ray shows the CBC of 6.3, hemoglobin of 11.7, electrolytes and renal profile are normal. AST is 118, ALT is 136, alkaline phosphatase was 84. Legionella urine antigen has been ordered, the results are not available to us right now. Patient has received 4 doses of IV Rocephin, he is currently on oral Zithromax. Yesterday's chest x-ray showed scarring versus atelectasis, and the right midlung, multiple developing right- sided pleural effusion. We will switch the patient's abiotic stew IV Levaquin, repeat chest x-ray in the morning. Patient's FiO2 was decreased down to 2 L, however patient does desaturate with walking, normally wears no oxygen. The patient is seen again today 03/26/2018 in follow-up on the regular medical floor. He is currently awake and alert in no acute distress. He is breathing a bit better today as compared to yesterday. He did however have difficulty in breathing once exposed to some chemicals from housekeeping cleaning the bed next to him last evening. He has since recovered. He continues to maintain O2 saturations in the 90s on 2 L/m per nasal cannula. He still has few scattered rhonchi. Dyspnea with minimal exertion. Sputum, urine, blood cultures reveal no growth. Urine Legionella antigen is negative. He is currently on bronchodilators, Mucinex and Levaquin. The patient is seen again today 03/27/2018 in follow-up on the regular medical floor. He is awake and alert in no acute distress. He still has a loose nonproductive cough. He is maintaining O2 saturations in the low 90s on room air now. He's been afebrile. Blood, urine and sputum cultures reveal no growth. Still feels he cannot clear his secretions. The plan is for bronchoscopy with BAL today. The patient is seen again today 03/28/2018 in follow-up on the regular medical floor. He is awake and alert in no acute distress. He did undergo bronchoscopy with BAL with Dr. Clancy yesterday. He was found to have a lot of inflammation and bronchial wash and cultures are pending. The patient is feeling quite a bit better today. He is coughing less. He is less short of breath. He is maintaining O2 saturations in the 90s on 4 L/m per nasal cannula. White count 5.6. Creatinine 0.89. He remains on Levaquin. Objective - Vital Signs Vital signs: Vital Signs Temp 96.7 F L 03/28/18 07:10 Pulse 76 03/28/18 11:45 Resp 16 03/28/18 08:10 BP 105/71 03/28/18 07:10 Pulse Ox 92 L 03/28/18 07:33 Intake & Output 03/27/18 03/28/18 03/28/18 18:59 06:59 18:59 Intake Total 350 240 Balance 350 240 Weight 104.326 kg 104.326 kg Intake: IV 350 Oral 240 Other: Voiding Method Toilet Toilet Toilet Urinal # Voids 1 2 - Exam - Exam No acute distress, oriented 3. On room air now. No respiratory distress. HEENT examination is grossly unremarkable. Mucous membranes are moist. No oral lesions. Neck supple. Full range of motion. No adenopathy thyromegaly or neck vein distention. Cardiovascular examination reveals regular rhythm rate. S1-S2 normal. No S3 or S4. No discernible murmur noted. Lungs reveal bilateral crackles. No wheezes. Coarse breath sounds Abdomen soft bowel sounds are heard. No masses or tenderness. Extremities are intact. No cyanosis clubbing or edema. Skin is without rash or lesion. Neurologic examination is brief but nonfocal. - Labs CBC & Chem 7: 03/28/18 07:28 03/28/18 07:28 Labs: Abnormal Lab Results - Last 24 Hours (Table) 03/27/18 03/27/18 03/28/18 Range/Units 08:48 20:33 07:17 RBC (4.30-5.90) m/uL Hgb (13.0-17.5) gm/dL Hct (39.0-53.0) % Plt Count (150-450) k/uL Lymphocytes # (1.0-4.8) k/uL Sodium (137-145) mmol/L Potassium (3.5-5.1) mmol/L BUN (9-20) mg/dL Glucose (74-99) mg/dL POC Glucose (mg/dL) 179 H 163 H (75-99) mg/dL TIBC 220 L (228-460) ug/dL Ferritin 1455.3 H (22.0-322.0) ng/mL ALT (21-72) U/L Albumin (3.5-5.0) g/dL 03/28/18 03/28/18 Range/Units 07:28 07:28 RBC 4.23 L (4.30-5.90) m/uL Hgb 11.9 L (13.0-17.5) gm/dL Hct 38.5 L (39.0-53.0) % Plt Count 475 H (150-450) k/uL Lymphocytes # 0.6 L (1.0-4.8) k/uL Sodium 136 L (137-145) mmol/L Potassium 5.3 H (3.5-5.1) mmol/L BUN 21 H (9-20) mg/dL Glucose 159 H (74-99) mg/dL POC Glucose (mg/dL) (75-99) mg/dL TIBC (228-460) ug/dL Ferritin (22.0-322.0) ng/mL ALT 143 H (21-72) U/L Albumin 3.4 L (3.5-5.0) g/dL Microbiology - Last 24 Hours (Table) 03/27/18 14:30 Gram Stain - Preliminary Pleural Fluid Body Fluid Culture - Preliminary 03/27/18 14:30 Anaerobic Culture - Preliminary Bronchial Washings - Right 03/27/18 14:30 Acid Fast Bacilli Culture - Preliminary Bronchial Washings - Right 03/27/18 14:30 Fungal Culture - Preliminary Bronchial Washings - Right 03/21/18 18:19 Blood Culture - Final Blood No Growth after 144 hours Assessment and Plan Assessment: Assessment: Interstitial changes on chest x-ray and CAT scan, possibly consistent with interstitial pneumonia or an atypical infection. History of multiple environmental ALLERGIES No prior history of pulmonary disease. Lifelong nonsmoker Hypoxemic respiratory failure. Plan: The patient was seen and evaluated by Dr. Clancy. Bronchoscopy with BAL was performed yesterday. Cultures are pending. We'll continue with his current treatment plan. Increase his activity as tolerated. Decrease the FiO2 will maintaining O2 saturations greater than 92%. In the interim we'll continue with the current treatment plan. We will increase his activity as tolerated. We'll continue to follow. I, the cosigning physician, performed a history & physical examination of the patient. Lungs sounds with few scattered rhonchi, diminished. Maintaining good O2 saturations in the 90s on 4 L/m per nasal cannula. I discussed the assessment and plan of care with my nurse practitioner, Maddy Phelps. I attest to the above note as dictated by her.
[2018-03-28 12:13] LABS: Glucose,Whole Blood 125 mg/dL (75-99)
--- NOTE | 2018-03-28 15:09 | P.PN ---
Subjective Progress Note Date: 03/28/18 Principal diagnosis: Pneumonia Patient was seen and examined. No acute events overnight. Brochoscopy and BAL yesterday. Patient reports no improvement in breathing. Also states he has dizziness when standing up. Saturating 91% on 4L NC. Objective - Vital Signs Vital signs: Vital Signs Temp 96.7 F L 03/28/18 07:10 Pulse 75 03/28/18 11:35 Resp 16 03/28/18 08:10 BP 105/71 03/28/18 07:10 Pulse Ox 92 L 03/28/18 07:33 Intake & Output 03/27/18 03/28/18 03/28/18 18:59 06:59 18:59 Intake Total 350 240 Balance 350 240 Weight 104.326 kg 104.326 kg Intake: IV 350 Oral 240 Other: Voiding Method Toilet Toilet Toilet Urinal # Voids 1 2 - Exam General: non toxic, no distress, appears at stated age Derm: warm, dry Head: atraumatic, normocephalic, symmetric Eyes: EOMI, no lid lag, anicteric sclera Mouth: no lip lesion, mucus membranes moist Cardiovascular: S1S2 reg, no murmur Lungs: Good air entry bilaterally, rhonchi noted at the right base, no accessory muscle use Abdominal: soft, nontender to palpation, no guarding, no appreciable organomegaly Ext: no gross muscle atrophy, no edema, no contractures Neuro: CN II-XI grossly intact, no focal neuro deficits Psych: Alert, oriented, appropriate affect - Labs CBC & Chem 7: 03/28/18 07:28 03/28/18 07:28 Labs: Abnormal Lab Results - Last 24 Hours (Table) 03/27/18 03/27/18 03/28/18 Range/Units 08:48 20:33 07:17 RBC (4.30-5.90) m/uL Hgb (13.0-17.5) gm/dL Hct (39.0-53.0) % Plt Count (150-450) k/uL Lymphocytes # (1.0-4.8) k/uL Sodium (137-145) mmol/L Potassium (3.5-5.1) mmol/L BUN (9-20) mg/dL Glucose (74-99) mg/dL POC Glucose (mg/dL) 179 H 163 H (75-99) mg/dL TIBC 220 L (228-460) ug/dL Ferritin 1455.3 H (22.0-322.0) ng/mL ALT (21-72) U/L Albumin (3.5-5.0) g/dL 03/28/18 03/28/18 Range/Units 07:28 07:28 RBC 4.23 L (4.30-5.90) m/uL Hgb 11.9 L (13.0-17.5) gm/dL Hct 38.5 L (39.0-53.0) % Plt Count 475 H (150-450) k/uL Lymphocytes # 0.6 L (1.0-4.8) k/uL Sodium 136 L (137-145) mmol/L Potassium 5.3 H (3.5-5.1) mmol/L BUN 21 H (9-20) mg/dL Glucose 159 H (74-99) mg/dL POC Glucose (mg/dL) (75-99) mg/dL TIBC (228-460) ug/dL Ferritin (22.0-322.0) ng/mL ALT 143 H (21-72) U/L Albumin 3.4 L (3.5-5.0) g/dL Microbiology - Last 24 Hours (Table) 03/27/18 14:30 Gram Stain - Preliminary Pleural Fluid Body Fluid Culture - Preliminary 03/27/18 14:30 Anaerobic Culture - Preliminary Bronchial Washings - Right 03/27/18 14:30 Acid Fast Bacilli Culture - Preliminary Bronchial Washings - Right 03/27/18 14:30 Fungal Culture - Preliminary Bronchial Washings - Right 03/21/18 18:19 Blood Culture - Final Blood No Growth after 144 hours Assessment and Plan Assessment: Assessment 57 year old M with no PMH presents to the ED for fever, cough and SOB. Found to have a pneumonia and admitted for hypoxia requiring O2 and IV Abx. Plan Community acquired Pneumonia - s/p bronchoscopy with BAL yesterday. Likely cause for SOB, cough and fever. No fever or leukocytosis documented since admission. - Bronchial washing Cx pending, PMNs seen. - CTA ruled out PE but confirms bilateral pulmonary infiltrates. - CXR 03/26 shows resolving bibasilar infiltrates. - Patient was initially started on Ceftriaxone and Azithromycin IV but was switched for Levaquin PO for GN coverage per Pulm. - Sputum Cx shows normal ervin, BCx 96H prelim negative, Legionella UAg negative. - Continue Mucinex 1200mg PO BID, DuoNeb Q2H PRN for SOB, Levofloxacin 750 mg PO daily (day 4). Started Solu-Medrol 60mg IV Q6H yesterday. Incentive spirometry for atelectasis. O2 per NC to maintain O2 sat > 92%. FU CXR in the AM , bronchial washing Cx, FU Pulmonology Transaminitis: T. Bili 0.6 AST 57 ALT 143 ALK 84, resolving. h/o drinking 1-2 beers 4-5 times/ week. Acute hep panel negative. Liver US shows simple cysts. Lipid panel within normal limits. Continue to monitor. Hyperkalemia: K 5.3. Likely due to Rhabdo, CPK mildly elevated at 183. Patient asymptomatic. Will continue to monitor. Rhabdo: CPK 183 likely due to dehydration. Encourage PO hydration. Will continue to monitor. Anemia: Hg 11.9 Hct 38.5 MCV 90.8. Stable. Iron studies consistent with AOCD. Will continue to monitor. Hyponatremia: Resolved. Improved with IVF, likely due to dehydration. Most recent Na 136. Dispo: Patient continues to require O2. He is saturating 91% on 4L while sitting in bed. I anticipate his O2 level to drop with ambulation.
[2018-03-28 17:14] LABS: Glucose,Whole Blood 166 mg/dL (75-99)
[2018-03-28 21:12] LABS: Glucose,Whole Blood 152 mg/dL (75-99)
[2018-03-28 23:06] VITALS: RESP 18
[2018-03-29] MEDS: methylPREDNISolone SOD SUCCI 125 MG/2 ML VIAL IV SCH ×3 (05:20→17:16)
[2018-03-29 07:05] LABS: Glucose,Whole Blood 106 mg/dL (75-99)
[2018-03-29] MEDS: INSULIN ASPART 100 UNIT/ML 1 ML 10 ML VIAL SQ SCH ×4 (07:22→22:01)
[2018-03-29] MEDS: IPRATROPIUM-ALBUTEROL 3 ML NEB INHALATION PRN ×4 (08:12→20:09)
[2018-03-29 08:13] LABS: HCT 36.4 % (39.0-53.0); HGB 11.6 gm/dL (13.0-17.5); MCH 29.3 pg (25.0-35.0); MCV 91.6 fL (80.0-100.0); Mean Platelet Volume 6.2; Platelet Count 422 k/uL (150-450); RBC 3.97 m/uL (4.30-5.90); RDW 13.8 % (11.5-15.5)
[2018-03-29 08:48] LABS: Anion Gap 7 mmol/L; Blood Urea Nitrogen 22 mg/dL (9-20); Calcium 9.1 mg/dL (8.4-10.2); Carbon Dioxide 23 mmol/L (22-30); Chloride 104 mmol/L (98-107); Glucose 111 mg/dL (74-99); Potassium 5.2 mmol/L (3.5-5.1); Sodium 134 mmol/L (137-145)
[2018-03-29] MEDS: LEVOFLOXACIN 750 MG TAB PO SCH (09:06)
[2018-03-29] MEDS: guaiFENesin 600 MG TABLET.ER PO SCH ×2 (09:06→22:00)
[2018-03-29] MEDS: HEPARIN SODIUM,PORCINE 5,000 UNIT/ML 1 ML VIAL SQ SCH ×2 (09:06→22:00)
--- NOTE | 2018-03-29 09:28 | CDI ---
Last Revision, July 2017 Documentation Clarification Form Date: 03/29/2018 9:21:30 AM From: Marily Hdez RN, CCDS Admit Date: 03/21/2018 10:00:00 PM Patient Name: Jcarlos Ba Visit Number: [id number] ATTENTION: The Clinical Documentation Specialists (CDI) and [facility] Coding Staff appreciate your assistance in clarifying documentation. Please respond to the clarification below the line at the bottom and electronically sign. The CDI & [facility] Coding staff will review the response and follow-up if needed. Please note: Queries are made part of the Legal Health Record. If you have any questions, please contact the author of this message via ITS. Christine Peña MD A diagnosis of anemia lacks specificity to accurately reflect your patients severity of condition and clarification is needed. History/Risk Factors: no documented PMH Clinical indicators: Hemoglobin: 12.3/11.5/12.3/11.7/12.6/12.8/11.9/11.6 Hematocrit: 37.7/36.8/38.5/37.4/36.4 Iron 83 TIBC 220 Iron Sat 37.73 Ferritin 1455.3 Treatment: Labs AM Daily In order to capture the severity of condition, please clarify the type of anemia and etiology if known: Chronic blood loss anemia Iron deficiency anemia Drug induced anemia Nutritional anemia Anemia of chronic disease Unable to determine Other, please specify Please continue to document in your progress notes and discharge summary in order to capture severity of illness and risk of mortality. Include clinical findings that support your diagnosis. Anemia of chronic disease MTDD
--- NOTE | 2018-03-29 10:28 | XR ---
EXAMINATION TYPE: XR chest 2V DATE OF EXAM: 03/29/2018 COMPARISON: 03/27/2018 HISTORY: Follow-up for pneumonia TECHNIQUE: Frontal and lateral views of the chest are obtained. FINDINGS: There is improved aeration of the lung bases with minimal residual left basilar platelike a telectasis. There is no focal air space opacity, pleural effusion, or pneumothorax seen. The cardiac silhouette size is within normal limits. The osseous structures are intact. Moderate multilevel de generative change of the thoracic spine is again noted. IMPRESSION: Near complete resolution of the multifocal opacities with persistent left basilar subseg mental platelike atelectasis remaining.
--- NOTE | 2018-03-29 11:49 | P.PN ---
Subjective Progress Note Date: 03/29/18 Principal diagnosis: Pneumonia Patient was seen and examined. Improved breathing today but continues to be SOB. Continues to cough clear sputum. Saturating 91% on 2L today. Objective - Vital Signs Vital signs: Vital Signs Temp 96.8 F L 03/29/18 06:42 Pulse 87 03/29/18 11:30 Resp 18 03/29/18 06:42 BP 99/61 03/29/18 06:42 Pulse Ox 89 L 03/29/18 08:29 Intake & Output 03/28/18 03/29/18 03/29/18 18:59 06:59 18:59 Intake Total 1730 Output Total 1100 Balance 630 Weight 104.326 kg Intake: Oral 1730 Output: Urine 1100 Other: Voiding Method Toilet Toilet Urinal Urinal # Voids 2 1 - Exam General: non toxic, no distress, appears at stated age Derm: warm, dry Head: atraumatic, normocephalic, symmetric Eyes: EOMI, no lid lag, anicteric sclera Mouth: no lip lesion, mucus membranes moist Cardiovascular: S1S2 reg, no murmur Lungs: Good air entry bilaterally, coarse BS R>L, no accessory muscle use Abdominal: soft, nontender to palpation, no guarding, no appreciable organomegaly Ext: no gross muscle atrophy, no edema, no contractures Neuro: CN II-XI grossly intact, no focal neuro deficits Psych: Alert, oriented, appropriate affect - Labs CBC & Chem 7: 03/29/18 07:41 03/29/18 07:41 Labs: Abnormal Lab Results - Last 24 Hours (Table) 03/28/18 03/28/18 03/28/18 Range/Units 11:58 17:11 21:08 RBC (4.30-5.90) m/uL Hgb (13.0-17.5) gm/dL Hct (39.0-53.0) % Sodium (137-145) mmol/L Potassium (3.5-5.1) mmol/L BUN (9-20) mg/dL Glucose (74-99) mg/dL POC Glucose (mg/dL) 125 H 166 H 152 H (75-99) mg/dL 03/29/18 03/29/18 03/29/18 Range/Units 06:54 07:41 07:41 RBC 3.97 L (4.30-5.90) m/uL Hgb 11.6 L (13.0-17.5) gm/dL Hct 36.4 L (39.0-53.0) % Sodium 134 L (137-145) mmol/L Potassium 5.2 H (3.5-5.1) mmol/L BUN 22 H (9-20) mg/dL Glucose 111 H (74-99) mg/dL POC Glucose (mg/dL) 106 H (75-99) mg/dL Microbiology - Last 24 Hours (Table) 03/27/18 14:30 Acid Fast Bacilli Smear - Final Bronchial Washings - Right Acid Fast Bacilli Culture - Preliminary 03/27/18 14:30 Gram Stain - Preliminary Pleural Fluid Body Fluid Culture - Preliminary Assessment and Plan Assessment: Assessment 57 year old M with no PMH presents to the ED for fever, cough and SOB. Found to have a pneumonia and admitted for hypoxia requiring O2 and IV Abx. Plan Community acquired Pneumonia - s/p bronchoscopy with BAL 03/28. Likely cause for SOB, cough and fever. No fever or leukocytosis documented since admission. - Bronchial washing Cx pending, PMNs seen. - CTA ruled out PE but confirms bilateral pulmonary infiltrates. - CXR 03/29 shows near complete resolution of the multifocal opacities with persistent L basilar atelectasis. - Patient was initially started on Ceftriaxone and Azithromycin IV but was switched for Levaquin PO for GN coverage per Pulm. - Sputum Cx shows normal ervin, BCx final negative, Legionella UAg negative. - Pulm consulted recommend to continue steroids and Abx, O2 eval, likely DC tomorrow. - Continue Mucinex 1200mg PO BID, DuoNeb Q2H PRN for SOB, Levofloxacin 750 mg PO daily (day 5). Continue Solu-Medrol 60mg IV Q6H. Incentive spirometry for atelectasis. O2 per NC to maintain O2 sat > 92%. FU bronchial washing Cx, FU Pulmonology Hyperkalemia: K 5.2. Likely due to Rhabdo, CPK mildly elevated at 183. Patient asymptomatic. Will continue to monitor. Transaminitis: T. Bili 0.6 AST 57 ALT 143 ALK 84, resolving. h/o drinking 1-2 beers 4-5 times/ week. Acute hep panel negative. Liver US shows simple cysts. Lipid panel within normal limits. Continue to monitor. Rhabdo: CPK 183 likely due to dehydration. Encourage PO hydration. Will continue to monitor. Anemia of chronic disease: Hg 11.6 Hct 36.4 MCV 91.6. Stable. Iron studies consistent with AOCD. Will continue to monitor. Hyponatremia: Resolving. Improved with IVF, likely due to dehydration. Most recent Na 134. Dispo: Patient continues to require O2. He is saturating 91% on 2L while sitting in bed. I anticipate his O2 level to drop < 90% with ambulation. Pending clinical improvement.
[2018-03-29 11:54] LABS: Glucose,Whole Blood 121 mg/dL (75-99)
--- NOTE | 2018-03-29 12:15 | P.PN ---
Subjective Progress Note Date: 03/29/18 57-year-old male who was admitted with a diagnosis of a respiratory illness that has been going on for a couple weeks. His chest x-ray and CAT scan suggesting interstitial pattern consistent with either viral or atypical pneumonia. The patient's complaints primarily included chest congestion cough and shortness of breath. He is feeling a bit better today. Somewhat of a poor historian. This process per my consultation started maybe 2-3 weeks ago. He initially had some GI complaints. He is a pretty healthy man. Has a history of multiple environmental ALLERGIES. He has no prior history of any lung disease. He is a lifelong nonsmoker. White count is 8.5 hemoglobin 11.5 hematocrit 36.8 and platelet count is normal. Electrolytes look pretty normal. Liver function tests were a little abnormal but seemed to be improving. Urine was negative. Blood urine and sputum cultures are thus far negative. A Legionella urinary antigen is pending. He is currently on Zithromax and Rocephin and breathing treatments. Progress note dated 03/24/2018 This is a 57-year-old male admitted with a diagnosis of pneumonia. He's been having symptoms for a couple of weeks prior to admission. Chest x-ray and CAT scan shows a diffuse interstitial pattern consistent with either viral or atypical pneumonia. Clinically, the patient's feeling much better. His breath is improved. He's not coughing years much. Minimal chest congestion. Not coughing up any phlegm. His today is with him. She's a better historian. He otherwise looks reasonably well. A chest x-ray was to be ordered today. He has not yet been done. I did mention to the family that sometimes the chest x-ray will right behind the clinical improvement of the patient. White count 6.9 hemoglobin 12.3 hematocrit 38.5 and platelet count normal. Electrolyte profile is normal. Microbiology is negative. On 03/25/2018 patient seen in follow-up on medical surgical floor. Improving, no fever, no chills. Remains on 2 L per nasal cannula with pulse ox of 94%, lung sounds are positive for coarse breath sounds. Blood, urine and sputum cultures are negative. Today's chest x-ray shows the CBC of 6.3, hemoglobin of 11.7, electrolytes and renal profile are normal. AST is 118, ALT is 136, alkaline phosphatase was 84. Legionella urine antigen has been ordered, the results are not available to us right now. Patient has received 4 doses of IV Rocephin, he is currently on oral Zithromax. Yesterday's chest x-ray showed scarring versus atelectasis, and the right midlung, multiple developing right- sided pleural effusion. We will switch the patient's abiotic stew IV Levaquin, repeat chest x-ray in the morning. Patient's FiO2 was decreased down to 2 L, however patient does desaturate with walking, normally wears no oxygen. The patient is seen again today 03/26/2018 in follow-up on the regular medical floor. He is currently awake and alert in no acute distress. He is breathing a bit better today as compared to yesterday. He did however have difficulty in breathing once exposed to some chemicals from housekeeping cleaning the bed next to him last evening. He has since recovered. He continues to maintain O2 saturations in the 90s on 2 L/m per nasal cannula. He still has few scattered rhonchi. Dyspnea with minimal exertion. Sputum, urine, blood cultures reveal no growth. Urine Legionella antigen is negative. He is currently on bronchodilators, Mucinex and Levaquin. The patient is seen again today 03/27/2018 in follow-up on the regular medical floor. He is awake and alert in no acute distress. He still has a loose nonproductive cough. He is maintaining O2 saturations in the low 90s on room air now. He's been afebrile. Blood, urine and sputum cultures reveal no growth. Still feels he cannot clear his secretions. The plan is for bronchoscopy with BAL today. The patient is seen again today 03/28/2018 in follow-up on the regular medical floor. He is awake and alert in no acute distress. He did undergo bronchoscopy with BAL with Dr. Clancy yesterday. He was found to have a lot of inflammation and bronchial wash and cultures are pending. The patient is feeling quite a bit better today. He is coughing less. He is less short of breath. He is maintaining O2 saturations in the 90s on 4 L/m per nasal cannula. White count 5.6. Creatinine 0.89. He remains on Levaquin. On 03/29/2018 I'm seeing this patient for a follow-up. Clinically is improving. He is ambulating in the hallway. Is currently on 2 L about 2 by nasal cannula with pulse ox of 95%. He is afebrile. His cough has subsided. Bronchoscopy and bronchial lavage was done and the cultures of been all negative thus far. Chest x-ray shows complete resolution of the previously described already infiltrates. No nausea. No vomiting. No altered mentation. No other significant events overnight. He remains on Levaquin and remains on bronchodilators and systemic steroids. He is on IV Solu-Medrol 60 mg every 6 hours. Objective - Vital Signs Vital signs: Vital Signs Temp 96.8 F L 03/29/18 06:42 Pulse 88 03/29/18 11:45 Resp 18 03/29/18 06:42 BP 99/61 03/29/18 06:42 Pulse Ox 89 L 03/29/18 08:29 Intake & Output 03/28/18 03/29/18 03/29/18 18:59 06:59 18:59 Intake Total 1730 Output Total 1100 Balance 630 Weight 104.326 kg Intake: Oral 1730 Output: Urine 1100 Other: Voiding Method Toilet Toilet Urinal Urinal # Voids 2 1 2 - Exam No acute distress, oriented 3. On room air now. No respiratory distress. HEENT examination is grossly unremarkable. Mucous membranes are moist. No oral lesions. Neck supple. Full range of motion. No adenopathy thyromegaly or neck vein distention. Cardiovascular examination reveals regular rhythm rate. S1-S2 normal. No S3 or S4. No discernible murmur noted. Lungs reveal bilateral crackles. No wheezes. Coarse breath sounds Abdomen soft bowel sounds are heard. No masses or tenderness. Extremities are intact. No cyanosis clubbing or edema. Skin is without rash or lesion. Neurologic examination is brief but nonfocal. - Labs CBC & Chem 7: 03/29/18 07:41 03/29/18 07:41 Labs: Abnormal Lab Results - Last 24 Hours (Table) 03/28/18 03/28/18 03/28/18 Range/Units 11:58 17:11 21:08 RBC (4.30-5.90) m/uL Hgb (13.0-17.5) gm/dL Hct (39.0-53.0) % Sodium (137-145) mmol/L Potassium (3.5-5.1) mmol/L BUN (9-20) mg/dL Glucose (74-99) mg/dL POC Glucose (mg/dL) 125 H 166 H 152 H (75-99) mg/dL 03/29/18 03/29/18 03/29/18 Range/Units 06:54 07:41 07:41 RBC 3.97 L (4.30-5.90) m/uL Hgb 11.6 L (13.0-17.5) gm/dL Hct 36.4 L (39.0-53.0) % Sodium 134 L (137-145) mmol/L Potassium 5.2 H (3.5-5.1) mmol/L BUN 22 H (9-20) mg/dL Glucose 111 H (74-99) mg/dL POC Glucose (mg/dL) 106 H (75-99) mg/dL 03/29/18 Range/Units 11:49 RBC (4.30-5.90) m/uL Hgb (13.0-17.5) gm/dL Hct (39.0-53.0) % Sodium (137-145) mmol/L Potassium (3.5-5.1) mmol/L BUN (9-20) mg/dL Glucose (74-99) mg/dL POC Glucose (mg/dL) 121 H (75-99) mg/dL Microbiology - Last 24 Hours (Table) 03/27/18 14:30 Acid Fast Bacilli Smear - Final Bronchial Washings - Right Acid Fast Bacilli Culture - Preliminary 03/27/18 14:30 Gram Stain - Preliminary Pleural Fluid Body Fluid Culture - Preliminary Assessment and Plan Plan: Assessment 1 bilateral pneumonia with interstitial pulmonary infiltrates scattered throughout the lung maki as evident on the chest x-ray and a CAT scan of the chest. The patient is post bronchoscopy and the bronchioloalveolar lavage is not feeling in the microbial growth. Subsequent chest x-ray from today shows improvement and interval resolution of the previously described pulmonary infiltrates. Clinically the patient is improving 2 known history of multiple environmental ALLERGIES 3 acute hypoxic respiratory failure improving and the patient is currently on 2 L about 2 by nasal cannula Plan Continue the current treatment. Will proceed with antibiotics and systemic steroids for another 24 hours. Anticipate discharge within next any 4 hours and a prednisone burst taper the course of Levaquin. We will assess the patient 's oxygen need and if qualified, the patient will be given O2 at the time of discharge. Promethazine with codeine for cough. DuoNeb about treatments around the clock. We'll continue to follow. Course is improving.
[2018-03-29 17:13] LABS: Glucose,Whole Blood 140 mg/dL (75-99)
[2018-03-29 21:09] LABS: Glucose,Whole Blood 194 mg/dL (75-99)
[2018-03-30] MEDS: methylPREDNISolone SOD SUCCI 125 MG/2 ML VIAL IV SCH ×3 (00:43→11:31)
[2018-03-30 06:18] VITALS: BP 119/69; TEMP 97.4
[2018-03-30 07:13] LABS: Glucose,Whole Blood 123 mg/dL (75-99)
--- NOTE | 2018-03-30 07:17 | P.PN ---
Subjective Progress Note Date: 03/30/18 Principal diagnosis: Pneumonia Patient was seen and examined. No acute events overnight. Patient reports great improvement in his breathing. Patient continues to cough up clear sputum. Patient states he is able to walk around the floor comfortably. Taken off oxygen since last night. Review of vitals show patient is saturating 91% on room air. Blood pressure and pulse rate is within normal limits. Her review of lab work show a sodium of 135, BUN of 22, glucose of 125. Objective - Vital Signs Vital signs: Vital Signs Temp 97.4 F L 03/30/18 06:17 Pulse 76 03/30/18 06:17 Resp 18 03/30/18 06:17 BP 119/69 03/30/18 06:17 Pulse Ox 93 L 03/30/18 06:17 Intake & Output 03/29/18 03/30/18 03/30/18 18:59 06:59 18:59 Other: # Voids 1 2 - Exam General: non toxic, no distress, appears at stated age Derm: warm, dry Head: atraumatic, normocephalic, symmetric Eyes: EOMI, no lid lag, anicteric sclera Mouth: no lip lesion, mucus membranes moist Cardiovascular: S1S2 reg, no murmur Lungs: Clear to auscultation bilaterally, no accessory muscle use Abdominal: soft, nontender to palpation, no guarding, no appreciable organomegaly Ext: no gross muscle atrophy, no edema, no contractures Neuro: CN II-XI grossly intact, no focal neuro deficits Psych: Alert, oriented, appropriate affect - Labs CBC & Chem 7: 03/29/18 07:41 03/30/18 07:40 Labs: Abnormal Lab Results - Last 24 Hours (Table) 03/29/18 03/29/18 03/29/18 Range/Units 07:41 07:41 11:49 RBC 3.97 L (4.30-5.90) m/uL Hgb 11.6 L (13.0-17.5) gm/dL Hct 36.4 L (39.0-53.0) % Sodium 134 L (137-145) mmol/L Potassium 5.2 H (3.5-5.1) mmol/L BUN 22 H (9-20) mg/dL Glucose 111 H (74-99) mg/dL POC Glucose (mg/dL) 121 H (75-99) mg/dL 03/29/18 03/29/18 Range/Units 16:57 21:00 RBC (4.30-5.90) m/uL Hgb (13.0-17.5) gm/dL Hct (39.0-53.0) % Sodium (137-145) mmol/L Potassium (3.5-5.1) mmol/L BUN (9-20) mg/dL Glucose (74-99) mg/dL POC Glucose (mg/dL) 140 H 194 H (75-99) mg/dL Assessment and Plan Assessment: Assessment 57 year old M with no PMH presents to the ED for fever, cough and SOB. Found to have a pneumonia and admitted for hypoxia requiring O2 and IV Abx. Plan 1. Community acquired Pneumonia - s/p bronchoscopy with BAL 03/28. Likely cause for SOB, cough and fever. No fever or leukocytosis documented since admission. - Bronchial washing Cx pending, AFB negative, PMNs seen. - CTA ruled out PE but confirms bilateral pulmonary infiltrates. - CXR 03/29 shows near complete resolution of the multifocal opacities with persistent L basilar atelectasis. - Patient was initially started on Ceftriaxone and Azithromycin IV but was switched for Levaquin PO for GN coverage per Pulm. - Sputum Cx shows normal ervin, BCx final negative, Legionella UAg negative. - Pulm consulted recommend to continue steroids and Abx, O2 eval, likely DC tomorrow. - Continue Mucinex 1200mg PO BID, DuoNeb Q2H PRN for SOB, Levofloxacin 750 mg PO daily (day 6). Continue Solu-Medrol 60mg IV Q6H. Incentive spirometry for atelectasis. O2 per NC to maintain O2 sat > 92%. Needs 6 min walk on DC. FU bronchial washing Cx, FU Pulmonology 2. Hyperkalemia: K 5.2. Possibly due to Rhabdo (CPK 183) but also due to IV steroid use (increased mineralocorticoid activity). Patient asymptomatic. Will continue to monitor. 3. Hyponatremia: Na 134. Likely due to IV steroid use. Patient asymptomatic. Will continue to monitor. 4. Transaminitis: T. Bili 0.6 AST 57 ALT 143 ALK 84, resolving. h/o drinking 1- 2 beers 4-5 times/ week. Acute hep panel negative. Liver US shows simple cysts. Lipid panel within normal limits. Continue to monitor. 5. Rhabdo: CPK 183 likely due to dehydration. Encourage PO hydration. Will continue to monitor. 6. Anemia of chronic disease: Hg 11.6 Hct 36.4 MCV 91.6. Stable. Iron studies consistent with AOCD. Will continue to monitor. 7. Dispo: Patient saturating better today. He is 93% on RA and passed home O2 eval. Likely to be discharged today.
[2018-03-30] MEDS: INSULIN ASPART 100 UNIT/ML 1 ML 10 ML VIAL SQ SCH ×2 (07:57→11:31)
[2018-03-30] MEDS: LEVOFLOXACIN 750 MG TAB PO SCH (07:58)
[2018-03-30] MEDS: guaiFENesin 600 MG TABLET.ER PO SCH (07:58)
[2018-03-30] MEDS: HEPARIN SODIUM,PORCINE 5,000 UNIT/ML 1 ML VIAL SQ SCH (07:59)
[2018-03-30] MEDS: IPRATROPIUM-ALBUTEROL 3 ML NEB INHALATION PRN ×2 (08:23→11:51)
[2018-03-30 08:27] LABS: Anion Gap 8 mmol/L; Blood Urea Nitrogen 22 mg/dL (9-20); Calcium 9.3 mg/dL (8.4-10.2); Carbon Dioxide 24 mmol/L (22-30); Chloride 103 mmol/L (98-107); Glucose 125 mg/dL (74-99); Potassium 5.1 mmol/L (3.5-5.1); Sodium 135 mmol/L (137-145)
[2018-03-30 11:24] LABS: Glucose,Whole Blood 144 mg/dL (75-99)
[2018-03-30 12:05] VITALS: PULSE 79
--- NOTE | 2018-03-30 16:38 | P.DS ---
Providers Date of admission: 03/21/18 22:00 Expected date of discharge: 03/30/18 Attending physician: Cristiano Knott Consults: 03/21/18 21:56 Consult Physician Routine Consulting Provider: Daniel Clancy Consult Reason/Comments: Interstitial pneumonia with hypoxemia Do you want consulting provider notified?: Yes Primary care physician: Stated None Hospital Course: Patient is a 57-year-old nonsmoking male that presented to the hospital for fever, chills, prolonged cough productive of brown sputum, and shortness of breath. Patient endorsed a prolonged viral-like illness that lasted 3 weeks along with fevers that range from 101-103 Fahrenheit. Patient denied any exposure to workplace chemicals but reported that his had been suffering from the flu before. Patient was found to have a hemoglobin of 12.6, potassium of 5.2, AST of 112, ALT of 167. CTA of the chest ruled out pulmonary embolus but confirmed bilateral pulmonary infiltrates. Pulmonology was consulted at this time and patient was initially started on Ceftriaxone and Azithromycin IV but was later switched to Levaquin by mouth for gram-negative negative coverage per pulmonary recommendations. Patient was hypoxemic for a prolonged period of time requiring oxygen supplementation by nasal cannula. Patient underwent bronchoscopy with bronchoalveolar lavage on . Bronchial wash cultures were pending at the time of discharge, AFB was negative with many PMNs seen. Patient was subsequently started on Solu- Medrol 60 mg IV every 6 hours. 6 minute walk test was performed prior to discharge and was negative. Patient was also noted to be hyponatremic with a sodium of 134 and hyperkalemic with a potassium of 5.2. This was likely due to IV steroid use. Patient also had a mild rhabdomyolysis with a CPK of 183, and was encouraged to hydrate. Patient had a transaminitis with a total bilirubin of 0.6 AST of 57 ALT of 143 and alkaline phosphatase of 84 which was all resolving on discharge. Patient endorses a history of drinking 1-2 beers, 4-5 times a week. His acute hepatitis panel was negative. Liver ultrasound showed simple cyst. Lipid panel was within normal limits. Patient was discharged and advised to follow-up with his primary care provider within 1-2 days. Case management was consulted as he was uninsured. Coupons were given to him to obtain medications. Patient was given an appointment with the head swamper in order to follow-up with the cultures of the bronchial wash. General: non toxic, no distress, appears at stated age Derm: warm, dry Head: atraumatic, normocephalic, symmetric Eyes: EOMI, no lid lag, anicteric sclera Mouth: no lip lesion, mucus membranes moist Cardiovascular: S1S2 reg, no murmur Lungs: Clear to auscultation bilaterally, no accessory muscle use Abdominal: soft, nontender to palpation, no guarding, no appreciable organomegaly Ext: no gross muscle atrophy, no edema, no contractures Neuro: CN II-XI grossly intact, no focal neuro deficits Psych: Alert, oriented, appropriate affect Pertinent Studies: CTA Chest CXR Procedures: Bronchoscopy with BAL Patient Condition at Discharge: Stable Plan - Discharge Summary Discharge Rx Participant: Yes New Discharge Prescriptions: New Albuterol Sulfate [Proair Hfa] 1 - 2 puff INHALATION Q6HR PRN #1 inhaler PRN Reason: Shortness Of Breath Or Wheezing guaiFENesin [Mucinex] 1,200 mg PO Q12HR tablet.er Levofloxacin [Levaquin] 750 mg PO DAILY #4 tab predniSONE 50 mg PO DAILY #5 tab Discontinued Fluticasone Nasal [place] [Flonase Nasal [place]] 1 spr EA NOSTRIL DAILY PRN PRN Reason: Allergy Symptoms Loratadine [Claritin] 10 mg PO DAILY PRN PRN Reason: Allergy Symptoms Discharge Medication List Albuterol Sulfate [Proair Hfa] 1 - 2 puff INHALATION Q6HR PRN #1 inhaler [Rx] Levofloxacin [Levaquin] 750 mg PO DAILY #4 tab 03/30/18 [Rx] guaiFENesin [Mucinex] 1,200 mg PO Q12HR tablet.er 03/30/18 [Rx] predniSONE 50 mg PO DAILY #5 tab 03/30/18 [Rx] Follow up Appointment(s)/Referral(s): Maddy Phelps NPC [Nurse Practitioner] - 3 Days None,Stated [Primary Care Provider] - [facility] Week Patient Instructions/Handouts: Pneumonia (DC), Hypoxemia (DC), Flexible Bronchoscopy (DC) Activity/Diet/Wound Care/Special Instructions: [facility] can assist in finding a primary care physician: #[phone] Please follow up with Maddy Phelps with the appointment provided to you. Please take all medications as advised. You will be discharged with an inhaler as needed, Prednisone, and Levofloxacin. Discharge Disposition: HOME SELF-CARE Pending Studies Pending Results: Bronchial wash cultures.
--- NOTE | 2018-04-07 19:50 | P.PCN ---
Date of Procedure: 03/27/18 Preoperative Diagnosis: Bilateral pneumonia Postoperative Diagnosis: Bilateral pneumonia Procedure(s) Performed: flexible bronchoscopy and bronchial alveolar lavage Anesthesia: CHERYL Surgeon: Daniel Clancy Estimated Blood Loss (ml): 0 Pathology: none sent Condition: stable Disposition: floor Indications for Procedure: SOB Operative Findings: This procedure was done under conscious sedation. The procedure was done in the bronchoscopy suite. The patient was sedated by GEOSPATIAL INFORMATION SCIENTIST and he was given a Diprivan for sedation. After achieving adequate sedation, the flexible bronchoscope was inserted to the left nostril was advanced into the upper airway. Examination of the posterior oropharynx, larynx, epiglottis, vallecula , reflux and vocal cords was within normal limits. All of the upper airway structures were within normal and there were no abnormalities noted. A total of 2 mL of 1% lidocaine was applied to the vocal cords and following that the bronchoscope was advanced upper trachea and examination of the tracheal bronchial tree was done. Examination trachea was within normal limits. Examination of the bilateral mainstem bronchi was within normal limits. Right upper lobe was patent and was trifurcated. The bronchus intermedius was patent. The various segments of the right lower lobe including the medial basilar, anterior lateral and posterior and superior and the medial segment of the right middle lobe was somewhat atelectatic and extrinsically compressed. There was no endobronchial lesions or tumors identified. No significant rest or secretions identified. Examination left side was within normal limits including the left upper lobe bronchus and the left lower lobe bronchus along with various segments and subsegments. At this point the bronchoscope was moved in the RML and wedged in the lateral segment and a BAL of the RML was done. A total of 100 cc of saline was infused and 35 cc was aspirated back and the BAL was non bloody. The procedure was completed without any complications. The bronchoscope was removed and the patient was released in a stable condition. The samples will be sent for microbial analysis.
== END 2018-03-30 14:15 | disposition home or self-care (01) | DRG 166 ==
LOC: EC 17:36 → 4MS4W 22:00
PROVIDERS: ADMIT Internal Medicine; ATTEND Internal Medicine
PROC: 0B9D8ZX Drainage of Right Middle Lung Lobe, Via Natural or Artificial Opening Endoscopic, Diagnostic (ICD-10-PCS; principal; 2018-03-27 14:00)
DX: J18.9 Pneumonia, unspecified organism (principal); J96.01 Acute respiratory failure with hypoxia; E87.1 Hypo-osmolality and hyponatremia; J84.9 Interstitial pulmonary disease, unspecified; J90 Pleural effusion, not elsewhere classified; J98.11 Atelectasis; M62.82 Rhabdomyolysis; D64.9 Anemia, unspecified; E86.0 Dehydration; E87.5 Hyperkalemia; K76.89 Other specified diseases of liver; T38.0X5A Adverse effect of glucocorticoids and synthetic analogues, initial encounter; Z80.0 Family history of malignant neoplasm of digestive organs; J45.909 Unspecified asthma, uncomplicated; R74.0 Nonspecific elevation of levels of transaminase and lactic acid dehydrogenase [LDH]; Z79.51 Long term (current) use of inhaled steroids; D63.8 Anemia in other chronic diseases classified elsewhere
CPT/HCPCS: 31624; 36415; 71046; 71275; 76705; 80048; 80053; 80061; 80074; 81001; 82164; 82550; 82728; 83540; 83550; 83605; 83735; 83880; 85025; 85027; 85379; 85610; 85730; 87040; 87070; 87075; 87086; 87102; 87116; 87205; 87206; 87252; 87449; 87496; 87498; 87502; 87529; 87541; 87634; 87798; 88108; 88305; 89050; 94640; 94760; 96374; 96375; 99291

== ENCOUNTER 2024-05-13 13:46 | Emergency (ER) | payer OTHER ==
[2024-05-13 13:49] VITALS: RESP 18; TEMP 97.7
--- NOTE | 2024-05-13 14:16 | ED ---
General Adult HPI - General Chief complaint: Extremity Injury, Lower Stated complaint: R leg injury Time Seen by Provider: 05/13/24 13:55 Source: patient, RN notes reviewed Mode of arrival: ambulatory Limitations: no limitations - History of Present Illness Initial comments: Patient is a 64-year-old male presenting to the emergency department with right ankle injury. Incident occurred today prior to arrival. Patient was pushing a vehicle when he felt a pop in his right posterior ankle. Patient is having only minimal discomfort since that time. Patient states he may be walking a little bit different. No other area of injury or concern. - Related Data Previous Rx's Medication Instructions Recorded Albuterol Sulfate [Proair Hfa] 1 - 2 puff INHALATION Q6HR PRN #1 03/30/18 inhaler Levofloxacin [Levaquin] 750 mg PO DAILY #4 tab 03/30/18 guaiFENesin [Mucinex] 1,200 mg PO Q12HR tablet.er 03/30/18 predniSONE 50 mg PO DAILY #5 tab 03/30/18 Allergies Allergy/AdvReac Type Severity Reaction Status Date / Time No Known Allergies Allergy Verified 05/13/24 13:50 Review of Systems ROS Statement: Those systems with pertinent positive or pertinent negative responses have been documented in the HPI. ROS Other: All systems not noted in ROS Statement are negative. Constitutional: Denies: fever Eyes: Denies: eye pain ENT: Denies: ear pain Cardiovascular: Denies: chest pain Gastrointestinal: Denies: abdominal pain Musculoskeletal: Reports: as per HPI. Denies: back pain Past Medical History Past Medical History: No Reported History History of Any Multi-Drug Resistant Organisms: None Reported Past Surgical History: Hernia Repair Past Anesthesia/Blood Transfusion Reactions: No Reported Reaction Past Psychological History: No Psychological Hx Reported Smoking Status: Never smoker Past Alcohol Use History: Occasional Past Drug Use History: None Reported - Past Family History Father Family Medical History: Cancer Additional Family Medical History / Comment(s): colon and prostate General Exam Limitations: no limitations General appearance: alert, in no apparent distress Head exam: Present: normocephalic Eye exam: Present: normal appearance Respiratory exam: Present: normal lung sounds bilaterally Cardiovascular Exam: Present: regular rate, normal rhythm Expanded Peripheral pulses: 2+: Posterior Tibialis (R), Dorsalis Pedis (R) Extremities exam: Present: other (Decreased foot movement with squeezing of Achilles. There does appear to be deficit felt in the Achilles tendon itself as well.). Absent: tenderness Neurological exam: Present: alert. Absent: motor sensory deficit Psychiatric exam: Present: normal affect, normal mood Skin exam: Present: normal color Course Vital Signs 05/13/24 05/13/24 13:47 14:47 Temperature 97.7 F Pulse Rate 53 L 54 L Respiratory 18 18 Rate Blood Pressure 160/76 143/84 O2 Sat by Pulse 97 97 Oximetry Procedures - Orthopedic Splinting/Casting Injury #1 Side: right Lower Extremity Injury Location: short leg Lower Extremity Immobilizer: posterior splint Medical Decision Making - Medical Decision Making Was pt. sent in by a medical professional or institution (, PA, WELDING OPERATOR, urgent care, hospital, or assisted...) When possible be specific @ -No Did you speak to anyone other than the patient for history (EMS, parent, family, police, friend...)? What history was obtained from this source @ - is present and helps provide history including details of injury Did you review nursing and triage notes (agree or disagree)? Why? @ -I reviewed and agree with nursing and triage notes Were old charts reviewed (outside hosp., previous admission, EMS record, old EKG, old radiological studies, urgent care reports/EKG's, assisted records)? Report findings @ Differential Diagnosis (chest pain, altered mental status, abdominal pain women, abdominal pain men, vaginal bleeding, weakness, fever, dyspnea, syncope, headache, dizziness, GI bleed, back pain, seizure, CVA, palpatations, mental health, musculoskeletal)? @ -Differential Musculoskeletal Muscular strain, contusion, ligament sprain, fracture, arthritis, septic arthritis, bursitis, cellulitis, muscle spasm, nerve compression, DVT, arterial occlusion, herpes zoster, electrolyte abnormality, tumor.... This is not meant to be in all inclusive list EKG interpreted by me (3pts min.). @ -As above X-rays interpreted by me (1pt min.). @ -Right ankle x-ray concerning for soft tissue abnormality, possible Achilles injury CT interpreted by me (1pt min.). @ -None done U/S interpreted by me (1pt. min.). @ -None done What testing was considered but not performed or refused? (CT, X-rays, U/S, labs)? Why? @ -None What meds were considered but not given or refused? Why? @ -None Did you discuss the management of the patient with other professionals (professionals i.e. , PA, WELDING OPERATOR, lab, RT, psych nurse, social studies department chair, book author, teacher, sanitation officer, special education case manager)? Give summary @ -No Was smoking cessation discussed for >3mins.? @ -No Was critical care preformed (if so, how long)? @ -No Were there social determinants of health that impacted care today? How? (Homelessness, low income, unemployed, alcoholism, drug addiction, transportation, low edu. Level, literacy, decrease access to med. care, correction, rehab)? @ -No Was there de-escalation of care discussed even if they declined (Discuss DNR or withdrawal of care, Hospice)? DNR status @ -No What co-morbidities impacted this encounter? (DM, HTN, Smoking, COPD, CAD, Cancer, CVA, ARF, Chemo, Hep., AIDS, mental health diagnosis, sleep apnea, morbid obesity)? @ -None Was patient admitted / discharged? Hospital course, mention meds given and route, prescriptions, significant lab abnormalities, going to OR and other pertinent info. @ -Patient presents with history and exam consistent with Achilles injury. Splint placed. Patient will be discharged with follow-up with orthopedics and recommended no weightbearing. Prescription provided. For crutches. Undiagnosed new problem with uncertain prognosis? @ -No Drug Therapy requiring intensive monitoring for toxicity (Heparin, Nitro, Insulin, Cardizem)? @ -No Were any procedures done? @ -Splint, see above Diagnosis/symptom? @ -Achilles tear Acute, or Chronic, or Acute on Chronic? @ -Acute Uncomplicated (without systemic symptoms) or Complicated (systemic symptoms)? @ -Default Side effects of treatment? @ -No Exacerbation, Progression, or Severe Exacerbation? @ -No Poses a threat to life or bodily function? How? (Chest pain, [place], [place], pneumonia, PE, COPD, DKA, ARF, appy, cholecystitis, CVA, Diverticulitis, Homicidal, Suicidal, threat to staff... and all critical care pts) @ -No Disposition Clinical Impression: Achilles tendon tear Disposition: HOME SELF-CARE Condition: Stable Instructions (If sedation given, give patient instructions): Achilles Tendon Rupture (ED), Tendon Rupture (ED) Additional Instructions: No weightbearing on right leg, prescription provided. Please follow-up with orthopedics in the next couple of days for recheck, number provided. Also follow-up with your primary care physician. Return for increased pain, swelling, worsening or changing symptoms or other concerns Is patient prescribed a controlled substance at d/c from ED?: No Referrals: Sang Cuello MD [STAFF PHYSICIAN] - 1-2 days Alton De Leon MD [STAFF PHYSICIAN] - 1-2 days Time of Disposition: 15:17
--- NOTE | 2024-05-13 14:47 | XR ---
EXAMINATION TYPE: XR ankle complete 3 views RT DATE OF EXAM: 05/13/2024 COMPARISON: NONE HISTORY: 64-year-old male injury while pushing car, Achilles injury TECHNIQUE: 3 views FINDINGS: Ankle mortise is congruent with preservation of the distal tibiofibular overlap. There is f ocal thickening of the mid to distal third Achilles tendon up to 1.3 cm AP where as the more proximal Achilles tendon on the measures 7 mm thick. Tiny plantar heel spur. Subtalar joint align. IMPRESSION: 1. There is focal fusiform thickening at the mid to distal third Achilles tendon to 1.3 cm thick wher eas the more proximal Achilles tendon is more normal 7 mm in thickness. Underlying Achilles tendon in jury/tear is not excluded. 2. Otherwise, no acute osseous abnormality seen. [facility], Workstation: [email or web address], 05/13/2024 2:44 PM
[2024-05-13 14:50] VITALS: BP 143/84; PULSE 54
== END 2024-05-13 15:50 | disposition home or self-care (01) ==
LOC: EC 13:46
DX: S89.91XA Unspecified injury of right lower leg, initial encounter
CPT/HCPCS: 29515; 99283

== ENCOUNTER → 2024-05-23 | Day surgery (SDC) | payer SELFPAY ==
[2024-05-19 16:14] VITALS: BMI 31.1
[~2024-05-23] MED LIST: DEXAMETHASONE SOD PHOSPHATE 4 MG/ML 1 ML VIAL ONE; HYDROmorphone 0.5 MG/0.5 ML SYRINGE IVP PRN; LIDOCAINE 1% (10MG/ML) FOR IV START INTRADERMA PRN; LIDOCAINE 1% INJ 10MG/ML (20 ML MDV) ONE; MIDAZOLAM 2 MG/2 ML VIAL ONE; PHENYLEPHRINE 10 MG/ML VIAL ONE; PROPOFOL 10 MG/ML 20 ML VIAL IV ONE; ROPIVACAINE 5 MG/ML 30 ML VIAL ONE; SUCCINYLCHOLINE CHLORIDE 200 MG/10 ML VIAL IV ONE; droPERidol 5 MG/2 ML VIAL IVP ONE; ePHEDrine 50 MG/ML 1 ML VIAL ONE; fentaNYL (PF) 50 MCG/ML 2 ML AMP ONE
[2024-05-23] MEDS: IV FLUID CONTINUATION 1,000 ML IV ONE (08:55)
[2024-05-23] MEDS: LACTATED RINGERS 1,000 ML IV SCH (08:56)
[2024-05-23] MEDS: DEXAMETHASONE SOD PHOSPHATE 4 MG/ML 1 ML VIAL IV ONE (09:13)
[2024-05-23] MEDS: ONDANSETRON 4 MG/2 ML VIAL IVP ONE (09:13)
[2024-05-23] MEDS: MIDAZOLAM 2 MG/2 ML VIAL IV ONE (09:34)
--- NOTE | 2024-05-23 09:36 | P.ANPRN ---
Procedure Note - Anesthesia - Nerve Block Performed Right Adductor Canal Single Time Out Performed: Yes Date of Procedure: 05/23/24 Procedure Start Time: :13 Procedure Stop Time: :20 Location of Patient: PreOp Indication: Acute Post-Operative Pain, Requested by Surgeon Sedation Type: Sedate with meaningful contact maintained Preparation: Sterile Prep, Sterile Dressing Position: Supine Catheter: None Needle Types: Facet Needle Gauge: 20 Ultrasound used to visualize needle placement: Yes Ultrasound used to observe medication spread: Yes Injectate: 0.5% Ropivacaine (see comment for volume) (10 ml + decadron 1 mg) Blood Aspirated: No Pain Paresthesia on Injection Noted: No Resistance on Injection: Normal Image Stored and Saved: Yes Events: Uneventful and Well Tolerated Right Popliteal Single Time Out Performed: Yes Date of Procedure: 05/23/24 Procedure Start Time: : Procedure Stop Time: :30 Location of Patient: PreOp Indication: Acute Post-Operative Pain, Requested by Surgeon Sedation Type: Sedate with meaningful contact maintained Preparation: Sterile Prep, Sterile Dressing Position: Left Lateral Catheter: None Needle Types: Facet Needle Gauge: 20 Ultrasound used to visualize needle placement: Yes Ultrasound used to observe medication spread: Yes Injectate: 0.5% Ropivacaine (see comment for volume) (20 ml + decadron 3 mg) Blood Aspirated: No Pain Paresthesia on Injection Noted: No Resistance on Injection: Normal Image Stored and Saved: Yes Events: Uneventful and Well Tolerated
[2024-05-23] MEDS: ceFAZolin 1,000 MG in SODIUM CHLORIDE 0.9% 1,000 ML IRRIGATION ONE (10:21)
[2024-05-23] MEDS: LACTATED RINGERS 1,000 ML IV ONE ×2 (11:10→11:26)
--- NOTE | 2024-05-23 11:30 | P.OP ---
Date of Procedure: 05/23/24 Preoperative Diagnosis: right Achilles tendon rupture Postoperative Diagnosis: same Procedure(s) Performed: open repair Achilles tendon rupture right ankle Implants: Arthrex 3.9mm swivel lock anchors x 2 Anesthesia: TYESHA Surgeon: Hernan Mar Estimated Blood Loss (ml): 3 Pathology: none sent Condition: stable Disposition: PACU Description of Procedure: Prior to the patient being brought to the operative room, anesthesia administered a nerve block on the affected lower extremity. The patient was then brought into the operating room where timeout was taken to confirm correct patient identifiers, correct laterally of surgery, and correct procedure. Once all staff in the room were in agreement the timeout, the patient was induced and placed under general anesthesia. The patient was then placed on the operating table in the prone position, with appropriate padding in the thoracic area as well as the face. Once anesthesia was satisfied with position of the patient, a well-padded tourniquet was placed on the thigh of the surgical leg. The leg was then prepped and draped in usual manner. The leg was exsanguinated, the knee flexed, and then the tourniquet inflated to 250 mmHg. Attention was directed to the posterior aspect the ankle, where there was a palpable defect in the watershed area of the Achilles tendon. A transverse incision was made near the proximal stump of the Achilles rupture. It was deepened under the subcutaneous tissue careful to identify, avoid, and retract any neurovascular structures and cauterize any bleeding vessels. Blunt dissection was continued down to level of the peritenon. Blunt instrumentation was inserted on the medial lateral side of the Achilles tendon to separate the peritenon from the proximal stump. A large sponge forceps was used to grasp proximal stump of the Achilles tendon and pull it distally. The Arthrex PARS jig was inserted on either side of the Achilles tendon with the inner arms inside the peritenon. With tension placed on the proximal stump of the Achilles tendon, a needle was passed through the #1 position of the PARS jig to lock the tendon in place. The #2 suture was passed next. The looped locking stitches were passed through the holes 3 and 4. The last suture was through 5. The sutures are then evened out and then the PARS jig was retracted distally to pull the suture within the peritenon and along the course of the proximal stump of the Achilles tendon. The sutures were delivered into the surgical field. The looped sutures were used to pass the #2 suture to create a locking stitch both medially and laterally. The looped sutures then placed on the back table and set aside. Tension was placed on both suture stacks and pulled distally to remove any creep from the suture in the tendon. Once the creep was removed, tension was placed on the tendon and it was indicated that the suture had a good grasp of the tendon given that the gastroc muscle belly was moving while pulling on the suture. 2 small stab incisions were made on the medial lateral aspects of the Achilles tendon insertion over the calcaneus. Those incisions are taken directly down to bone. The drill bit for the 4.75 mm swivel lock anchor was used to create drill holes in the calcaneus. The drill holes were then tapped. The suture passer was placed through the calcaneal incisions and then passed through the distal stump of the Achilles tendon exiting out at the rupture site. The suture passer was then used to grasp the suture stack and pull it through the distal stump of the tendon and out the corresponding incision over the calcaneus. This is then repeated with the opposite side. With tension placed on the suture to bring the tendon ends together, the suture was passed through the swivel lock anchor which was then inserted into the drill hole in the calcaneus and the swivel lock was impacted and advanced to lock the suture in place. This was then repeated for the opposite side. Then the knee was flexed and Miller's test was performed. Miller's test was negative. The suture was cut and the wound is thoroughly irrigated with antibiotic saline. Subcutaneous closure of all incisions was done with 4-0 Monocryl. The L-shaped incision over the rupture was closed with 4-0 Stratafix in a running subcuticular manner. Dermal glue was applied over all the incisions as well as the jane made by the passing needles. Once dried Steri-Strips are placed over the incisions. An Arthrex jumpstart dressing was placed over the incisions and then covered with a dry sterile dressing. The tourniquet was released and capillary refill return to the digits on the affected foot. Then the patient was placed in a below-knee fracture boot with the ankle slightly plantar flexed. The patient was rolled onto the transfer table in the supine position and then anesthesia was reversed. The patient was taken recovery with vital signs stable.
[2024-05-23 11:47] VITALS: TEMP 97.5
[2024-05-23 12:26] VITALS: RESP 16
[2024-05-23 12:41] VITALS: BP 119/75; PULSE 64
== END | disposition home or self-care (01) ==
LOC: OR 08:04
PROVIDERS: ATTEND Podiatrist
DX: S86.011A Strain of right Achilles tendon, initial encounter (principal)
CPT/HCPCS: 64445; 64447